=== PATIENT | female | born 1940 | race Caucasian/White ===

== ENCOUNTER → 2016-08-29 | Outpatient (CLI) | payer OTHER | LOC: CIMAGING 10:21 | PROVIDERS: ATTEND Internal Medicine | DX: Z12.31 Encounter for screening mammogram for malignant neoplasm of breast (principal) | CPT/HCPCS: G0202 ==

== ENCOUNTER → 2017-06-12 | Outpatient (CLI) | payer OTHER | LOC: BRMIMAGING 10:54 | PROVIDERS: ATTEND Internal Medicine | DX: Z13.820 Encounter for screening for osteoporosis (principal); M81.0 Age-related osteoporosis without current pathological fracture ==

== ENCOUNTER 2017-08-11 18:14 | Emergency (ER) | payer OTHER ==
[2017-08-11] MEDS ORDERED: CIPROFLOXACIN 500MG PREPACK#2 BTL TAKEHOME ONE ×2 (21:20→21:23)
[2017-08-11] MEDS ORDERED: HYDROCOD/APAP 5/325 PREPACK#6 BTL TAKEHOME ONE ×2 (21:20→21:23)
--- NOTE | 2017-08-11 21:20 | EDPHY ---
H & P Time Seen by Provider: 08/11/17 21:17 HPI/ROS: Chief complaint. Abdominal pain HPI. Patient is a 77-year-old female presents emergency department with abdominal pain that began about 4 o'clock this morning. She describes pain as being all over and crampy. There is no radiation to her back. She has not had nausea vomiting or diarrhea. May be somewhat worse with eating but basically not worse with eating or movement. She has had no fever. She has no chest discomfort or shortness of breath. Maybe the abdomen is slightly distended. No urinary symptoms. She had her INR checked today for remote DVT/PE and that was normal. She has had her appendix taken out. She went to urgent care and was found to have an elevated blood pressure so sent to the emergency department. ROS Constitutional. no fever/chills, no weakness Eyes. no problems with vision ENT. no sore throat, no nasal drainage Cardiovascular. no chest pain Respiratory. no shortness of breath, no cough Abdominal. Abdominal pain . no problems urinating MS. no calf pain/swelling, no neck/back pain, no joint pain Skin. no rash Lymph. no swollen glands Neuro. no headache, no dizziness, no difficulty walking or with speech Past Medical/Surgical History: Past medical history is significant for DVT, depression, peripheral vascular disease, appendectomy Social History: , nonsmoker, no alcohol Smoking Status: Never smoked Physical Exam: General Appearance: Alert pleasant well-developed female mild distress vital signs are stable Eyes: Pupils equal and round no pallor or injection. ENT, Mouth: Mucous membranes are moist. Respiratory: There are no retractions, lungs are clear to auscultation. Cardiovascular: Regular rate and rhythm. Gastrointestinal: Abdomen is soft and diffusely tender. No masses. Normal bowel sounds Neurological: Awake and alert, sensory and motor exams grossly normal. Skin: Warm and dry, no rashes. Musculoskeletal: Neck is supple nontender. Extremities symmetrical, full range of motion. Psychiatric: Patient is oriented X 3, there is no agitation. Constitutional: Initial Vital Signs Temperature (C) 36.7 C 08/11/17 18:30 Heart Rate 82 08/11/17 18:30 Respiratory Rate 16 08/11/17 18:30 Blood Pressure 182/103 H 08/11/17 18:30 O2 Sat (%) 97 06/12/18 18:30 O2 Delivery Mode Room Air Allergies/Adverse Reactions: Penicillins Allergy (Verified 10/24/11 16:33) Home Medications: Medication Instructions Recorded CALCIUM CARBONATE/VITAMIN D3 1 each PO BID 10/25/11 [CALCIUM + D 600 MG TABLET] Cyanocobalamin [Vitamin B12 1000 1,000 mcg PO DAILY 10/25/11 MCG (OTC)] Imipramine HCl [Imipramine HCl 50 150 mg PO HS 10/25/11 mg (RX)] [place] Carbonate ER [Eskalith Cr 450 mg PO HS 10/25/11 450 mg (RX)] Leiter-3 Fatty Acids [Fish Oil 1000 1,000 mg PO BID 10/25/11 mg (OTC)] Pharmacy Completed 10/25/11 10/25/11 Polyethylene Glycol 3350 [Miralax 17 gm PO DAILY 10/25/11 17 gm (OTC)] RAMELTEON [Rozerem] 8 mg PO HS 10/25/11 Vit C/Dl-E AC/Lut/Copper/Znox 1 each PO DAILY 10/25/11 [Preservision Softgel] Warfarin Sodium [Coumadin 5MG (RX)] 5 mg PO SUMOTUWEFRSA@1600 10/25/11 Warfarin Sodium [Coumadin 5MG (RX)] 7.5 mg PO TH@1600 10/25/11 oxyCODONE/APAP 5/325 [Percocet 1 tab PO Q6 PRN 10/25/11 5/325 (RX)] traZODone [traZODONE 100MG (RX)] 200 mg PO HS 10/25/11 levOFLOXACIN [Levaquin] 500 mg PO DAILY #7 tablet 08/11/17 metroNIDAZOLE [Metronidazole] 500 mg PO QID #28 tablet 08/11/17 Medical Decision Making - Diagnostics Imaging Results: CT abdomen and pelvis reviewed by me and discussed with Dr. Lanier shows extensive diverticular disease and possibly diverticulitis. No obvious abscess. Moderate constipation. No small-bowel obstruction Procedures: IV normal saline. Morphine for pain. ED Course/Re-evaluation: Re-evaluation at 9:10 p.m. Patient is stable. The patient, her , and I discussed imaging and lab results. We discussed treatment plan including criteria for return and importance of follow-up and further evaluation. She expresses understanding and agreement Differential Diagnosis: I have considered diverticulitis, constipation, bowel obstruction Departure - Departure Disposition: Home, Routine, Self-Care Clinical Impression: Diverticulitis Condition: Good Instructions: Diverticulitis (ED), Diverticulitis Diet (ED) Additional Instructions: Drink plenty of fluids and stay hydrated. Metronidazole can interfere and increased your INR level from Coumadin. You need to have your Coumadin level checked again on Thursday. Levaquin can interfere with you're trazodone. Please discontinue your trazodone while you are being treated for diverticulitis. Please discussed continuing use of trazodone with Dr. Abdul when you are seen for re-evaluation Hydrocodone 1 pill every 4-6 hours as needed for discomfort. Will cause constipation. Return for worsening pain, fever, vomiting. Referrals: Mounika Melendez MD [Medical Doctor] - 2-3 days without fail Prescriptions: levOFLOXACIN [Levaquin] 500 mg PO DAILY #7 tablet metroNIDAZOLE [Metronidazole] 500 mg PO QID #28 tablet
[2017-08-11] MEDS ORDERED: metroNIDAZOLE 500 MG TAB PO ONE (21:21)
[2017-08-11] MEDS ORDERED: metroNIDAZOLE 500 MG TAB ONE (21:23)
[2017-08-11 21:43] VITALS: BP 160/99
--- NOTE | 2017-08-12 10:37 | CPEKG ---
Heart Rate: 84 RR Interval: 714 P-R Interval: 164 QRSD Interval: 108 QT Interval: 400 QTC Interval: 473 P [place]: -16 QRS [place]: -31 T Wave [place]: 103 EKG Severity - ABNORMAL ECG - EKG Impression: SINUS RHYTHM EKG Impression: LEFT ATRIAL ABNORMALITY EKG Impression: BORDERLINE IVCD WITH LAD EKG Impression: BORDERLINE T ABNORMALITIES, LATERAL LEADS Electronically Signed By: Jeff Saucedo 12-Aug-2017 20:49:49
== END 2017-08-11 21:43 | disposition home or self-care (01) ==
DX: K57.92 Diverticulitis of intestine, part unspecified, without perforation or abscess without bleeding (principal); Z79.01 Long term (current) use of anticoagulants; Z90.49 Acquired absence of other specified parts of digestive tract
CPT/HCPCS: 74177; 93005; 99285; J2270; 84484-PO

== ENCOUNTER 2017-08-16 14:54 | Emergency (ER) | payer OTHER ==
[2017-08-16] MEDS ORDERED: oxyCODONE IR 5 MG TAB PO ONE (15:31)
[2017-08-16] MEDS ORDERED: LIDOCAINE 4%/MENTHOL 1% PATCH TD ONE (15:33)
[2017-08-16] MEDS ORDERED: fentaNYL 100 MCG/2 ML INJ IVP ONE ×2 (16:43→17:28)
[2017-08-16] MEDS ORDERED: ACETAMINOPHEN 325 MG TAB PO ONE (17:27)
[2017-08-16] MEDS ORDERED: OXYCODONE/APAP 5/325MG PREPACK#4 BTL TAKEHOME ONE (17:36)
--- NOTE | 2017-08-16 17:36 | EDPHY ---
H & P Stated Complaint: back pain, fall on Time Seen by Provider: 08/16/17 15:11 HPI/ROS: 77 yo F states she fell when getting out of bed on Thursday night, 4 days ago, she saw a physician on Thursday who started her on tramadol and ordered and outpatient xray of the thoracolumbar spine. The xray showed a T12 compression fracture. She is also currently being treated as an outpatient for diverticulits on both Metronidazole and Levaquin. She denies numbness or tingling in her extremities, no weakness in arms or legs , no loss of bowel or bladder control. She complains of mid back pain worse with movement. She states the diverticulitis is actually improving. Review of systems As per HPI General no fever no chills no weakness HEENT no eye pain no eye discharge. No eye redness, no sore throat Respiratory no cough, no shortness of breath Cardiac no chest pain, no peripheral edema GI no abdominal pain, no diarrhea, no constipation, no nausea, no vomiting no flank pain, no hematuria, no dysuria Musculoskeletal positive myalgias, no joint pain Heme no easy bruising, no easy bleeding Endo no polyuria, no polydipsia Skin no rashes, no pruritus Neuro no syncope, no dizziness, no headaches Psych is no suicidal ideation, no homicidal ideation Source: Patient, Family Exam Limitations: No limitations - Medical/Surgical History Hx Asthma: No Hx Chronic Respiratory Disease: No Hx Diabetes: No Hx Cardiac Disease: Yes Hx Renal Disease: No Hx Cirrhosis: No Hx Alcoholism: No Hx HIV/AIDS: No Hx Splenectomy or Spleen Trauma: No Other PMH: DVT, depression, osteoporosis, diverticulitis - Family History Significant Family History: No pertinent family hx - Social History Smoking Status: Never smoked Alcohol Use: None Drug Use: None - Physical Exam Exam: 77-year-old female alert and oriented in moderate distress secondary to back pain, nontoxic appearance, afebrile Vital signs stable Atraumatic normocephalic Extraocular muscles intact, anicteric TMs no hemotympanum No Larsen's Neck supple no JVD, no posterior midline cervical tenderness Lungs clear to auscultation bilaterally, symmetric, good air entry Heart regular rate and rhythm Abdomen nondistended bowel sounds present soft nontender Back no ecchymosis, no step-offs, positive tenderness to palpation T10 through L2 Extremities no cyanosis clubbing or edema Neuro Alert and oriented, no sensory deficit, no motor deficit, good deep tendon reflexes in lower extremities Constitutional: Initial Vital Signs Respiratory Rate 18 08/16/17 15:04 Blood Pressure 119/87 H 08/16/17 15:04 O2 Delivery Mode Room Air O2 (L/minute) 36.8 Allergies/Adverse Reactions: Penicillins Allergy (Verified 08/16/17 15:10) Home Medications: Medication Instructions Recorded CALCIUM CARBONATE/VITAMIN D3 1 each PO BID 10/25/11 [CALCIUM + D 600 MG TABLET] Vit C/Dl-E AC/Lut/Copper/Znox 1 each PO DAILY 10/25/11 [Preservision Softgel] Warfarin Sodium [Coumadin 5MG (RX)] 5 mg PO SUMOTUWEFRSA@1600 10/25/11 levOFLOXACIN [Levaquin] 500 mg PO DAILY #7 tablet 08/11/17 ALENDRONATE SODIUM 08/16/17 Desipramine HCl 08/16/17 Lidocaine [Lidoderm] 1 each TP DAILY #30 adh..patch 08/16/17 Preservision Softgel 08/16/17 oxyCODONE/APAP 5/325 [Percocet 1 tab PO Q8 PRN #21 tab 08/16/17 5/325 (*)] Medical Decision Making ED Course/Re-evaluation: Patient seen and evaluated for back pain after a fall. No neurologic deficits. 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 Grade 1 anterolisthesis of L4 on L5, stable in appearance. Patient given oxycodone IR 5 mg p.o. With mild initial relief in pain. Additionally an IV was placed and patient was given fentanyl 25 mcg IV push with marked relief this was repeated. Patient is on Coumadin so I chose not to use a nonsteroidal anti-inflammatory. [employer] was contacted for a [place] brace I also contacted the on-call doctor for Dr. Benton, from [facility], i spoke with Dr Burgos who reccomended the brace and close follow up. She stated they would likely do an MRI on outpatient basis to see if pt is candidate for kyphoplasty. Impression T12 compression fracture Plan Follow up with [facility] Oxycodone with acetaminophen, rx #21 Lidocaine patch [place] brace Differential Diagnosis: Differential diagnosis considered but not limited to: back contusion, vertebral fracture, spinous process fracture, back muscle spasm - Data Points Medications Given: Discontinued Medications Acetaminophen (Tylenol) 650 mg PO EDNOW ONE Stop: 08/16/17 17:28 Last Admin: 08/16/17 17:38 Dose: 650 mg Fentanyl (Sublimaze) 25 mcg IVP EDNOW ONE Stop: 08/16/17 16:44 Last Admin: 08/16/17 17:00 Dose: 25 mcg Fentanyl (Sublimaze) 25 mcg IVP EDNOW ONE Stop: 08/16/17 17:29 Last Admin: 08/16/17 17:36 Dose: 25 mcg Miscellaneous Medication (Icy Hot Lidocaine/Menthol 4%/1% Patch) 1 patch TD EDNOW ONE Stop: 08/16/17 15:34 Last Admin: 08/16/17 15:45 Dose: 1 patch Oxycodone HCl (Oxycodone Ir) 5 mg PO EDNOW ONE Stop: 08/16/17 15:32 Last Admin: 08/16/17 15:43 Dose: 5 mg Oxycodone/Acetaminophen (Percocet 5/325mg Prepack#4) 1 btl TAKEHOME EDNOW ONE Stop: 08/16/17 17:37 Last Admin: 08/16/17 18:10 Dose: 1 btl Departure - Departure Disposition: Home, Routine, Self-Care Clinical Impression: Fracture, thoracic vertebra, compression Condition: Good Instructions: Oxycodone/Acetaminophen (By mouth), Lidocaine Patch (On the skin) , Vertebral Compression Fracture (ED) Referrals: Mounika Melendez MD [Primary Care Provider] - As per Instructions Jeff Benton MD [Medical Doctor] - As per Instructions Prescriptions: Lidocaine [Lidoderm] 1 each TP DAILY #30 adh..patch oxyCODONE/APAP 5/325 [Percocet 5/325 (*)] 1 tab PO Q8 PRN #21 tab PRN Reason: Pain, Severe
[2017-08-16 19:28] VITALS: BP 118/90
[2017-08-16] MEDS ORDERED: PATCH REMOVAL 1 EA PATCH TD SCH (21:00)
== END 2017-08-16 18:10 | disposition home or self-care (01) ==
LOC: CED 14:54
DX: S22.080A Wedge compression fracture of T11-T12 vertebra, initial encounter for closed fracture (principal); W06.XXXA Fall from bed, initial encounter
CPT/HCPCS: 96374; 96376; 99284; J3010

== ENCOUNTER → 2017-08-16 | Outpatient (CLI) | payer OTHER | LOC: FIMAGING 08:28 | PROVIDERS: ATTEND Emergency Medicine | DX: M48.54XA Collapsed vertebra, not elsewhere classified, thoracic region, initial encounter for fracture (principal); M51.36 Other intervertebral disc degeneration, lumbar region; M43.16 Spondylolisthesis, lumbar region; M53.86 Other specified dorsopathies, lumbar region ==

== ENCOUNTER 2017-08-20 09:05 | Emergency (ER) | payer OTHER ==
--- NOTE | 2017-08-20 11:24 | EDPHY ---
H & P Time Seen by Provider: 08/20/17 09:11 HPI/ROS: CHIEF COMPLAINT: Constipation HISTORY OF PRESENT ILLNESS: Patient with long history of constipation stating that often will go 3 days without stool. She has had several recent emergency department evaluations including diagnosis of diverticulitis over a week ago and diagnosis of T12 compression fracture last Thursday and started on Percocet for pain. She states that she has had no stool since last Thursday, 9 days ago. She has been passing gas and small stool she describes as"beans". She has been using milk a magnesia and prune juice intermittently without results. She describes some abdominal fullness but no significant abdominal pain. She has had no nausea or vomiting. She has had no fevers or chills. She does have back pain in the area of her fracture that has been severe. She is using a [place] brace. REVIEW OF SYSTEMS: Constitutional: No fever, no chills. Eyes: No discharge. ENT: No sore throat. Cardiovascular: No chest pain, no palpitations. Respiratory: No cough, no shortness of breath. Gastrointestinal: No abdominal pain, no vomiting. Genitourinary: No dysuria. Musculoskeletal: Back pain Skin: No rashes. Neurological: No headache. General Appearance: Alert, no distress. Chronically ill-appearing. Eyes: Pupils equal and round no pallor or injection. ENT, Mouth: Mucous membranes moist. Respiratory: There are no retractions, lungs are clear to auscultation. Cardiovascular: Regular rate and rhythm. Gastrointestinal: Abdomen is soft and nontender, no masses, bowel sounds normal. Some mild distension. Neurological: Awake and alert, no focal neurologic deficits Skin: Warm and dry, no rashes. Musculoskeletal: Neck is supple nontender. Extremities are symmetrical, full range of motion, no edema. Psychiatric: Patient is oriented X 3, there is no agitation. Medical/surgical history: Osteoporosis, depression, diverticulitis, DVT on warfarin, T12 fracture. Social history: Lives with . Uses tobacco and alcohol daily. Smoking Status: Never smoked Constitutional: Initial Vital Signs Temperature (C) 36.7 C 08/20/17 09:10 Heart Rate 75 08/20/17 09:10 Respiratory Rate 18 08/20/17 09:10 Blood Pressure 132/65 H 08/20/17 09:10 O2 Sat (%) 97 08/20/17 09:10 O2 Delivery Mode Room Air Allergies/Adverse Reactions: Penicillins Allergy (Verified 08/20/17 09:10) Home Medications: Medication Instructions Recorded CALCIUM CARBONATE/VITAMIN D3 1 each PO BID 10/25/11 [CALCIUM + D 600 MG TABLET] Vit C/Dl-E AC/Lut/Copper/Znox 1 each PO DAILY 10/25/11 [Preservision Softgel] Warfarin Sodium [Coumadin 5MG (RX)] 5 mg PO SUMOTUWEFRSA@1600 10/25/11 levOFLOXACIN [Levaquin] 500 mg PO DAILY #7 tablet 08/11/17 ALENDRONATE SODIUM 08/16/17 Desipramine HCl 08/16/17 Lidocaine [Lidoderm] 1 each TP DAILY #30 adh..patch 08/16/17 Preservision Softgel 08/16/17 oxyCODONE/APAP 5/325 [Percocet 1 tab PO Q8 PRN #21 tab 08/16/17 5/325 (*)] Medical Decision Making - Diagnostics Imaging Results: Imaging Impressions Abdomen X-Ray 08/20/17 10:07 Impression: Abundant intracolonic stool. No direct evidence of bowel obstruction. Imaging: I viewed and interpreted images myself ED Course/Re-evaluation: Minimal stool output despite Fleet's mineral oil enema and soapsuds enema. Differential Diagnosis: Differential diagnosis includes but is not limited to constipation, obstipation , bowel obstruction, diverticulitis. After evaluation no evidence of obstruction or true obstipation however constipation is severe and refractory to enemas. Plan is to recommend using magnesium citrate [id number] at home. Also will increase Colace so that she is taking it every time she takes Percocet. Discussed importance of trying to wean off narcotic medications as soon as possible. Will also recommend MiraLax, which patient has used multiple times in the past, at least twice daily. Strongly recommended she follow up with her primary care physician. She does have follow-up with orthopedics for her T12 fracture but has not yet seen them. Reviewed return precautions in detail. Stable for discharge. Departure - Departure Clinical Impression: Constipation Qualifiers: Constipation type: slow transit constipation Qualified Code(s): K59.01 - Slow transit constipation Condition: Fair Instructions: Constipation (DC) Additional Instructions: Increase water intake as well as fresh fruits and vegetables. Try to reduce use of Percocet as much as possible but take 1 Colace tablet every time you take Percocet. Today get a bottle of Mag citrate and take the entire bottle. Tomorrow start using MiraLax at least twice a day as discussed. And continue to take Colace every time you take a Percocet. For back pain occasional ibuprofen, less than once a day, is safe. I also recommend using ice to your back for pain, no heat. Follow up with your primary care physician without fail in the next few days. Return to the emergency department if you experience increasing abdominal pain, nausea, vomiting, fevers or other concerning symptoms. Referrals: Mounika Melendez MD [Primary Care Provider] - As per Instructions
[2017-08-20 13:05] VITALS: BP 127/87
== END 2017-08-20 11:40 | disposition home or self-care (01) ==
LOC: CED 09:05
DX: K59.01 Slow transit constipation (principal); Z79.01 Long term (current) use of anticoagulants
CPT/HCPCS: 74019-PO

== ENCOUNTER 2017-08-28 13:16 | Day surgery (SDC) | payer OTHER ==
[2017-08-28] MEDS ORDERED: CHLORHEXIDINE GLUC HIBICLENS 118 ML BTL TP ONE (13:34)
[2017-08-28] MEDS ORDERED: BUPIVACAINE 0.25% 30 ML SDV ONE (13:35)
[2017-08-28] MEDS ORDERED: EPINEPHrine 1 MG/ML INJ ONE (13:35)
[2017-08-28] MEDS ORDERED: BACITRACIN 50,000 UNITS/10 ML SYR IRR ONE (13:35)
[2017-08-28] MEDS ORDERED: LR 1,000 ML IV ONE (13:42)
[2017-08-28] MEDS ORDERED: IOPAMIDOL (ISOVUE-M 300) 15 ML VIAL ONE ×2 (13:46→14:33)
[2017-08-28 14:21] VITALS: BP 100/57
[2017-08-28] MEDS ORDERED: CLINDAMYCIN 900 MG/DEXTROSE 50 ML IV ONE (14:49)
[2017-08-28 15:10] LABS: INR 4.49 (0.83-1.16); PROTIME(PATIENT) 42.2 SEC (12.0-15.0)
== END 2017-08-28 15:42 | disposition home or self-care (01) ==
LOC: FSGY 13:16
PROVIDERS: ATTEND Neurological Surgery
DX: Z53.09 Procedure and treatment not carried out because of other contraindication (principal); S22.080A Wedge compression fracture of T11-T12 vertebra, initial encounter for closed fracture; Z79.01 Long term (current) use of anticoagulants
CPT/HCPCS: J0171; Q9967

== ENCOUNTER 2017-08-30 20:02 | Inpatient (IN) | payer OTHER ==
[2017-08-30] MEDS ORDERED: NS 1,000 ML IV ONE (20:30)
[2017-08-30] MEDS ORDERED: DIAZEPAM 5 MG/ML 1 ML SYR IVP ONE (20:43)
[2017-08-30 20:57] LABS: PLATELET COUNT 260 10^3/uL (150-400)
[2017-08-30 21:06] LABS: INR 2.46 (0.83-1.16); PROTIME(PATIENT) 26.6 SEC (12.0-15.0)
[2017-08-30] MEDS ORDERED: ONDANSETRON DISINTEGRATING 4 MG TAB PO PRN (21:46)
[2017-08-30] MEDS ORDERED: ONDANSETRON 4 MG/2 ML VIAL IVP PRN (21:46)
[2017-08-30] MEDS ORDERED: HYDROmorphONE/DILAUDID 1 MG/ML INJ IVP PRN (21:46)
[2017-08-30] MEDS ORDERED: PROMETHAZINE HCL 25 MG/ML INJ IVP PRN (21:46)
[2017-08-30] MEDS ORDERED: PHYTONADIONE 10 MG in NS 50 ML IV ONE (21:50)
[2017-08-30] MEDS ORDERED: BISACODYL 10 MG SUPP PR PRN (21:53)
[2017-08-30] MEDS ORDERED: LACTULOSE 20 GM/30 ML UDCUP PO PRN (21:53)
--- NOTE | 2017-08-30 22:29 | GHP ---
[f rep st] HISTORY AND PHYSICAL DATE OF ADMISSION: 08/30/2017 CHIEF COMPLAINT: Back pain. HISTORY: This is a 77-year-old female who has a past medical history of bipolar disorder and remote history of DVT of the leg on chronic anticoagulation as well as osteoporosis with recent compression fracture, presenting with worsening back pain. The patient is actually scheduled for kyphoplasty chloe for a fairly recently discovered T12 compression fracture. However, pain became so severe at h ome that she was not able to stay there and came to the ER for further evaluation. In discussion wit h the family, it sounds as if patient has been having increasing difficulty with falls of late and ev en prior to this injury has been struggling somewhat with her mobility. At the time of my evaluation , patient herself is rather somnolent after receiving some Valium in the emergency department. She n otes that at the present time she is comfortable. She denies other complaints at this time. Her fam ish is concerned that she has not eaten all day essentially other than a couple chocolate chip cookie s that she took with her pain medications. Patient denies hunger currently. PAST MEDICAL HISTORY: 1. Bipolar disorder. 2. Remote history of DVT, unclear if this was triggered or not. 3. Osteoporosis. 4. Recent compression fracture. 5. Chronic falls. PAST SURGICAL HISTORY: Appendectomy. SOCIAL HISTORY: Patient is and lives with her . She drinks alcohol occasionally. Sh stephy is . She is a prior smoker but is no longer smoking. FAMILY HISTORY: Parents are . REVIEW OF SYSTEMS: 10-point review of systems obtained and negative except as per HPI. HOME MEDICATIONS: 1. Warfarin. 2. PreserVision. 3. Timolol. 4. Lidocaine patch. 5. Desipramine. 6. [place]. 7. Alendronate. ALLERGIES: Penicillin. PHYSICAL EXAMINATION: VITAL SIGNS: BP 114/74, heart rate 83, respiratory rate 20, O2 sats 96% on 3 L, temperature is 37. GENERAL APPEARANCE: This is an elderly female. She is awake but somnolent. She is not moving and lying flat on her back. EYES: Pinpoint pupils. HENT: Oropharynx clear. CAR DIOVASCULAR: Regular rate and rhythm. No MRG. PULMONARY: CTA bilaterally to anterior exam. ABDOM EN: Soft, nontender, nondistended. EXTREMITIES: No clubbing, cyanosis, or edema. SKIN: Warm, dry , well perfused. NEURO/PSYCH: Oriented and appropriate. CLINICAL DATA: Labs reviewed and notable for a white blood cell count of 11.1. INR is 2.4. Can Bander Operator ry notable for creatinine of 1.4, potassium of 134. Abdominal x-ray from 08/20/2017, personally reviewed. Notable for intracolonic stool, otherwise noth ing acute. ASSESSMENT AND PLAN: This is a 77-year-old female with a fairly recent T12 compression fracture, tiara iting kyphoplasty, presenting with acutely worsening back pain. 1. Compression fracture. Again, patient has become increasingly symptomatic from this. She has anjelica eduled kyphoplasty for tomorrow but was unable to tolerate the pain at home and is now admitted for p ain control. She has responded well to very low-dose diazepam which will be continued. She is antic oagulated and will be given vitamin K in anticipation of kyphoplasty to be performed in the morning. She will continue her alendronate as per her outpatient routine. 2. Frequent falls. Patient sounds as if she has been increasingly more debilitated at home. This i s likely multifactorial, though I was unable to get much of a history from the patient at this point as she is so somnolent. Physical Therapy, Occupational Therapy, and Case Management will be involved . Family is requesting assistance with getting home health set up, which sounds reasonable, though d epending on her physical and occupational therapy evaluations, she may be more appropriate for [facility] facility. 3. Acute kidney injury. Patient with slight increase in her creatinine to 1.4 from a baseline close r to 1.2, although she does have a fair amount of fluctuation in looking back at her labs. We will o btain a lithium level just to be sure she is not having some lithium toxicity, though in discussion w ith her it sounds like she is quite compliant with her medications. This is most likely prer enal given that she has not been eating or drinking for at least the last 24 hours. We will provide intravenous fluids overnight and recheck in the morning. 4. Remote deep venous thrombosis. It is somewhat unclear if patient truly has an indication for natanael oing anticoagulation. Her INR is 2.4 currently. We will provide vitamin K in anticipation of proced ure in the morning. 5. Bipolar disorder. She is well controlled on her current medications, which will be continued. 6. Inpatient status. Suspect patient will need greater than 48-hour stay for evaluation and managem ent of above, given her generalized deconditioning and frequent falls and lack of safety in being at home. Patient is new to my care. Old records reviewed and summarized as per HPI and past medical history. Care plan reviewed with ER physician, including plans for kyphoplasty in the morning. Further histo ry obtained from patient's family present at bedside. /[id number]/MODL
[2017-08-30] MEDS: NS 1,000 ML IV SCH (22:40)
--- NOTE | 2017-08-30 22:42 | EDPHY ---
H & P Time Seen by Provider: 08/30/17 20:27 HPI/ROS: CHIEF COMPLAINT: Back pain HISTORY OF PRESENT ILLNESS: 77-year-old female presents to the emergency department with ongoing back pain. 2 weeks ago the patient had a mechanical fall and sustained a compression fracture T12. She was placed in a brace and was prescribed oxycodone. She has been taking 10 mg oxycodone as prescribed and wearing her brace as prescribed. She apparently was scheduled for surgery, kyphoplasty, however the patient's INR of the time was too high. She is now scheduled for kyphoplasty tomorrow, 08/31/2017, but presents to the emergency department because she cannot stand the pain anymore. The family is concerned because she is in such significant pain that she does not get up to go to the bathroom and do her daily activities. She denies pain in her chest or difficulty breathing. No other falls other than the original fall 2 weeks ago. She denies paresthesias in her upper lower extremities. Denies pain in her chest or difficulty breathing. Denies headache. She has pain especially when she tries to move around. She took 10 mg oxycodone just a few hours prior to arrival. REVIEW OF SYSTEMS: Constitutional: No fever, no chills. Eyes: No double or blurry vision. ENT: No sore throat. Respiratory: No cough, no shortness of breath. Cardiac: No chest pain. Gastrointestinal: No abdominal pain, vomiting or diarrhea. Genitourinary: No dysuria. Musculoskeletal: Back pain as above. No neck pain Skin: No rashes. Neurological: No headache. Past Medical/Surgical History: DVTs, depression, osteoporosis, diverticulitis, T12 compression fracture Social History: and lives independently with her in [place] Smoking Status: Current every day smoker Physical Exam: General Appearance: Alert, mild to moderate distress. Eyes: Pupils equal and round. Extraocular motions are all intact. ENT: Mouth: Mucous membranes moist. Respiratory: No wheezing, rhonchi, or rales, lungs are clear to auscultation. Cardiovascular: Regular rate and rhythm. Gastrointestinal: Abdomen is soft and nontender, no masses, no rebound or guarding, bowel sounds normal. Neurological: Alert and oriented x 3, cranial nerves II through XII grossly intact Skin: Warm and dry, no rashes. Musculoskeletal: Nontender to palpate along her cervical spine. Neck is supple. Unable to sit the patient upright secondary to her severe pain. Extremities: Full range of motion and no peripheral edema. Psychiatric: Patient is oriented X 3, there is no agitation. Constitutional: Initial Vital Signs Temperature (C) 36.8 C 08/30/17 20:06 Heart Rate 93 08/30/17 20:06 Respiratory Rate 18 08/30/17 20:06 Blood Pressure 110/72 08/30/17 20:06 O2 Sat (%) 93 08/30/17 20:06 O2 Delivery Mode Nasal Cannula O2 (L/minute) 3 Allergies/Adverse Reactions: Penicillins Allergy (Verified 08/20/17 09:10) Home Medications: Medication Instructions Recorded CALCIUM CARBONATE/VITAMIN D3 1 tab PO DAILY 10/25/11 [CALCIUM + D 600 MG TABLET] Warfarin Sodium [Coumadin 5MG (RX)] 5 mg PO SUMOTUTHFRSA@1600 10/25/11 Alendronate Sodium [Fosamax 70 MG 70 mg PO SA@0700 08/16/17 (*)] Desipramine HCl [Norpramin 50 mg 50 mg PO HS 08/16/17 (*)] Vit C/Dl-E AC/Lut/Copper/Znox 1 cap PO BID 08/16/17 [Preservision Softgel] Timolol 0.5% [TIMOPTIC 0.5% (*)] 1 drops EACHEYE DAILY 08/28/17 Cholecalciferol Vit D3 [Vitamin D3 2,000 units PO DAILY 08/30/17 (*)] [place] Carbonate ER [Eskalith Cr 450 mg PO DAILY 08/30/17 450 mg (*)] Warfarin Sodium [Coumadin 5MG (*)] 7.5 mg PO WE@1600 08/30/17 Medical Decision Making ED Course/Re-evaluation: 77-year-old female presents to the emergency department with back pain. She has been wearing her Field Mechanic/Site Lead Halie brace as directed. She has been taking oxycodone 10 mg and is still having ongoing consistent pain. She is scheduled for kyphoplasty tomorrow. Family is concerned that she is unable to take care of herself at home. On examination patient is clearly in distress. She is having difficulty moving around because of the pain. There is no neurologic symptoms. Patient has an elevated creatinine 1.4 with elevated BUN of 34 and likely dehydrated. Case was discussed with Dr. Rnoak Yuen, secondary supervising physician, who did not directly evaluate the patient but agrees with treatment and plan. Patient will be admitted to the hospitalist, Dr. Bebo Rod. Patient was given 1.25 mg of IV Valium. This did help some with her pain but still having pain with moving around. Differential Diagnosis: Back pain including but not limited to muscular pain, herniated disc, spine fracture, intra-abdominal causes and urinary tract infection. - Data Points Laboratory Results: Laboratory Results 08/30/17 20:40 08/30/17 20:40 08/30/17 08/30/17 08/30/17 20:40 20:40 20:40 WBC RBC Hgb Hct MCV MCH MCHC RDW Plt Count MPV Neut % (Auto) Lymph % (Auto) [place] % (Auto) Eos % (Auto) Baso % (Auto) Nucleat RBC Rel Count Absolute Neuts (auto) Absolute Lymphs (auto) Absolute Monos (auto) Absolute Eos (auto) Absolute Basos (auto) Absolute Nucleated RBC Immature Gran % Immature Gran # PT 26.6 SEC H SEC (12.0-15.0) INR 2.46 H (0.83-1.16) Sodium 134 mEq/L L mEq/L (135-145) Potassium 4.5 mEq/L mEq/L (3.3-5.0) Chloride 107 mEq/L mEq/L (97-110) Carbon Dioxide 22 mEq/l mEq/l (22-31) Anion Gap 5 mEq/L L mEq/L (8-16) BUN 34 mg/dL H mg/dL (7-23) Creatinine 1.4 mg/dL H mg/dL (0.6-1.0) Estimated GFR 36 Glucose 100 mg/dL mg/dL (70-100) Calcium 10.7 mg/dL H mg/dL (8.5-10.4) Phosphorus 4.4 mg/dL mg/dL (2.5-4.5) [place] 1.2 mEq/L mEq/L (0.6-1.2) 08/30/17 20:40 WBC 11.01 10^3/uL H 10^3/uL (3.80-9.50) RBC 4.26 10^6/uL 10^6/uL (4.18-5.33) Hgb 13.5 g/dL g/dL (12.6-16.3) Hct 41.9 % % (38.0-47.0) MCV 98.4 fL fL (81.5-99.8) MCH 31.7 pg pg (27.9-34.1) MCHC 32.2 g/dL L g/dL (32.4-36.7) RDW 13.8 % % (11.5-15.2) Plt Count 260 10^3/uL 10^3/uL (150-400) MPV 11.3 fL fL (8.7-11.7) Neut % (Auto) 77.2 % H % (39.3-74.2) Lymph % (Auto) 15.5 % % (15.0-45.0) [place] % (Auto) 6.2 % % (4.5-13.0) Eos % (Auto) 0.4 % L % (0.6-7.6) Baso % (Auto) 0.4 % % (0.3-1.7) Nucleat RBC Rel Count 0.0 % % (0.0-0.2) Absolute Neuts (auto) 8.51 10^3/uL H 10^3/uL (1.70-6.50) Absolute Lymphs (auto) 1.71 10^3/uL 10^3/uL (1.00-3.00) Absolute Monos (auto) 0.68 10^3/uL 10^3/uL (0.30-0.80) Absolute Eos (auto) 0.04 10^3/uL 10^3/uL (0.03-0.40) Absolute Basos (auto) 0.04 10^3/uL 10^3/uL (0.02-0.10) Absolute Nucleated RBC 0.00 10^3/uL 10^3/uL (0-0.01) Immature Gran % 0.3 % % (0.0-1.1) Immature Gran # 0.03 10^3/uL 10^3/uL (0.00-0.10) PT INR Sodium Potassium Chloride Carbon Dioxide Anion Gap BUN Creatinine Estimated GFR Glucose Calcium Phosphorus [place] Medications Given: Sodium Chloride (Ns) 1,000 mls @ 100 mls/hr IV CONT ARASH Stop: 02/26/18 21:59 Last Admin: 08/30/17 22:40 Dose: 1,000 mls Discontinued Medications Diazepam (Valium) 1.25 mg IVP EDNOW ONE Stop: 08/30/17 20:44 Last Admin: 08/30/17 20:48 Dose: 1.25 mg Sodium Chloride (Ns) 1,000 mls @ 0 mls/hr IV ONCE ONE PRN Reason: Wide Open Stop: 08/30/17 20:31 Last Admin: 08/30/17 20:39 Dose: 1,000 mls Phytonadione 10 mg/ Sodium (Chloride) 51 mls @ 204 mls/hr IV ONCE ONE Stop: 08/30/17 22:04 Last Admin: 08/30/17 22:40 Dose: 51 mls Departure - Departure Disposition: [facility] Inpatient Acute Clinical Impression: T12 compression fracture Back pain Qualifiers: Back pain location: low back pain Chronicity: acute Back pain laterality: unspecified Sciatica presence: without sciatica Qualified Code(s): M54.5 - Low back pain Condition: Good
[2017-08-30] MEDS: oxyCODONE IR 5 MG TAB PO PRN (23:31)
[2017-08-31] MEDS: DIAZEPAM 5 MG TAB PO PRN ×2 (01:19→09:41)
[2017-08-31] MEDS: oxyCODONE IR 5 MG TAB PO PRN ×4 (03:08→20:37)
[2017-08-31 05:14] LABS: INR 1.5 (0.83-1.16); PROTIME(PATIENT) 18.3 SEC (12.0-15.0)
[2017-08-31] MEDS ORDERED: LITHIUM CARBONATE ER 450 MG TAB PO SCH (09:00)
[2017-08-31] MEDS: CALCIUM CARB W/VIT D 500 MG TAB PO SCH (09:22)
[2017-08-31] MEDS: PRESERVISION AREDS2 FORMULA EYE VIT 1 EACH PO SCH ×2 (09:22→18:46)
[2017-08-31] MEDS: CHOLECALCIFEROL VIT D3 1,000 UNITS TAB PO SCH (09:22)
[2017-08-31] MEDS: POLYETHYLENE GLYCOL 3350 17 GM PKT PO PRN ×2 (09:38→20:35)
[2017-08-31] MEDS: TIMOLOL 0.5% 15 ML OPHT.BTL EACHEYE SCH (09:38)
[2017-08-31] MEDS: SENNOSIDES/DOCUSATE SODIUM TAB PO SCH ×2 (09:40→20:36)
[2017-08-31] MEDS: ACETAMINOPHEN 325 MG TAB PO PRN (09:40)
--- NOTE | 2017-08-31 10:12 | ASMTCMCOM ---
CM Note CM Note Notes: Pt in for back pain, had scheduled kyphoplasty today but could not tolerate pain so came to ED. Pt to have kypho today, therapy evals pending. Pt lives independently with husb, is having frequent falls. Pt likely needs HHC vs. SNF, CM to follow. D/c plan of care: TBD Date Signed: 08/31/2017 10:12 AM Electronically Signed By:MARGIE Eugene
--- NOTE | 2017-08-31 10:36 | PDMN ---
Medical Necessity Medical necessity: Pt meets inpt criteria per MD order on 08/30/17 and MCG M-63, A -1 day,Back pain. Pt admitted for worsening back pain, high fall risk with recent falls, pending surgery today as well as PT/OT evals.
[2017-08-31] MEDS: LITHIUM CARBONATE ER 450 MG TAB PO SCH (12:24)
[2017-08-31] MEDS ORDERED: CLINDAMYCIN 900 MG/DEXTROSE 50 ML IV ONE (13:30)
[2017-08-31] MEDS ORDERED: CHLORHEXIDINE GLUC HIBICLENS 118 ML BTL TP ONE ×2 (14:04→15:35)
[2017-08-31] MEDS ORDERED: BUPIVACAINE 0.25% 30 ML SDV ONE ×2 (14:04→15:35)
[2017-08-31] MEDS ORDERED: EPINEPHrine 1 MG/ML INJ ONE ×2 (14:05→15:35)
[2017-08-31] MEDS ORDERED: BACITRACIN 50,000 UNITS/10 ML SYR IRR ONE (14:05)
[2017-08-31] MEDS ORDERED: IOPAMIDOL (ISOVUE-M 300) 15 ML VIAL ONE ×3 (14:06→15:39)
--- NOTE | 2017-08-31 14:18 | HOSPPROG ---
Hospitalist Progress Note Assessment/Plan: 77y female with fall and c/o back pain. First encounter, chart reviewed. D/W Dr Rod. #compression fx -kypho today #Pain -cont meds #AZAEL -better -dehydration -poor po intake #Hx dvt -restart after procedure #Bipolar -home meds #Dispo -unclear -PT/OT -plan Subjective: no verbal interaction. Family at bedside. Objective: Vital Signs Temp Pulse Resp BP Pulse Ox 37.1 C 36 L 13 110/64 96 08/31/17 11:30 08/31/17 11:30 08/31/17 11:30 08/31/17 11:30 08/31/17 11:30 Laboratory Results 08/31/17 04:20 08/30/17 08/31/17 09/01/17 05:59 05:59 05:59 Intake Total 1383 Balance 1383 PT 18.3 SEC (12.0-15.0) H 08/31/17 04:20 INR 1.50 (0.83-1.16) H 08/31/17 04:20 - Physical Exam Constitutional: appears nourished, chronically ill appearing, uncomfortable Eyes: PERRL, anicteric sclera, EOMI Ears, Nose, Mouth, Throat: moist mucous membranes, hearing normal, ears appear normal Cardiovascular: No JVD, No tachycardia, No edema Respiratory: no respiratory distress, no rales or rhonchi, reduced air movement Gastrointestinal: normoactive bowel sounds, No tenderness, No ascites Skin: warm, normal color, abrasion Musculoskeletal: joint tenderness, pain with ROM, muscular tenderness, abnormal gait, generalized weakness Psychiatric: not anxious, poor insight, poor judgement, poor memory ICD10 Worksheet Patient Problems: Problems Problem Status Onset Back pain Acute T12 compression fracture Acute
[2017-08-31] MEDS ORDERED: LR 1,000 ML IV SCH (14:30)
[2017-08-31] MEDS ORDERED: fentaNYL 100 MCG/2 ML INJ ONE ×2 (16:29→18:22)
[2017-08-31] MEDS: fentaNYL 100 MCG/2 ML INJ IVP SCH ×3 (16:46→18:47)
--- NOTE | 2017-08-31 16:52 | PDANEPAE ---
ANE History of Present Illness T 12 kyphoplasty ANE Past Medical History - Cardiovascular History Hx Hypertension: No Hx Arrhythmias: No Hx Chest Pain: No Hx Coronary Artery / Peripheral Vascular Disease: Yes Hx CHF / Valvular Disease: No Hx Palpitations: No Cardiovascular History Comment: blood clots bilat legs - Pulmonary History Hx COPD: No Hx Asthma/Reactive Airway Disease: No Hx Recent Upper Respiratory Infection: No Hx Oxygen in Use at Home: No Hx Sleep Apnea: No Sleep Apnea Screening Result - Last Documented: Negative Pulmonary History Comment: 1 1/2 pack a day - Neurologic History Hx Cerebrovascular Accident: No Hx Seizures: No Hx Dementia: No - Endocrine History Hx Diabetes: No - Renal History Hx Renal Disorders: No - Liver History Hx Hepatic Disorders: No - Neurological & Psychiatric Hx Hx Neurological and Psychiatric Disorders: Yes Neurological / Psychiatric History Comment: depression - Cancer History Hx Cancer: No - Congenital Disorder History Hx Congenital Disorders: No - GI History Hx Gastrointestinal Disorders: Yes Gastrointestinal History Comment: constipation - Other Health History Other Health History: macular degeneration - Chronic Pain History Chronic Pain: Yes - Surgical History Prior Surgeries: appy, eye surgery, ANE Review of Systems Review of systems is: negative Review of Systems: - Exercise capacity Exercise capacity: limited by disability ANE Patient History - Allergies Allergies/Adverse Reactions: Penicillins Allergy (Verified 08/31/17 13:12) Hives - Home Medications Home medications: home medication list seen and reviewed Home Medications: CALCIUM CARBONATE/VITAMIN D3 [CALCIUM + D 600 MG TABLET] 1 tab PO DAILY [Last Taken 08/30/17 08:00] Warfarin Sodium [Coumadin 5MG (RX)] 5 mg PO SUMOTUTHFRSA@1600 10/25/11 [Last Taken 08/27/17] Alendronate Sodium [Fosamax 70 MG (*)] 70 mg PO SA@0700 08/16/17 [Last Taken 03/19] Desipramine HCl [Norpramin 50 mg (*)] 50 mg PO HS 08/16/17 [Last Taken 08/29/17 21:00] Vit C/Dl-E AC/Lut/Copper/Znox [Preservision Softgel] 1 cap PO BID 08/16/17 [ Last Taken 08/30/17 08:00] Timolol 0.5% [TIMOPTIC 0.5% (*)] 1 drops EACHEYE DAILY 08/28/17 [Last Taken 03/19 08:00] Cholecalciferol Vit D3 [Vitamin D3 (*)] 2,000 units PO DAILY 08/30/17 [Last Taken 08/30/17 08:00] [place] Carbonate ER [Eskalith Cr 450 mg (*)] 450 mg PO DAILY 08/30/17 [Last Taken 08/30/17 08:00] Warfarin Sodium [Coumadin 5MG (*)] 7.5 mg PO WE@1600 08/30/17 [Last Taken ] - NPO status NPO Status: no food or drink >8 hours NPO Since - Liquids (Date): 08/31/17 NPO Since - Liquids (Time): 09:00 NPO Since - Solids (Date): 08/31/17 NPO Since - Solids (Time): 00:00 - Smoking Hx Smoking Status: Current every day smoker - Family Anes Hx Family Hx Anesthesia Complications: none ANE Labs/Vital Signs - Labs Result Diagrams: 08/30/17 20:40 08/31/17 04:20 - Vital Signs Vital Signs: reviewed preoperatively; see RN documention for details Blood Pressure: 116/60 Heart Rate: 76 Respiratory Rate: 18 O2 Sat (%): 95 Height: 160.02 cm Weight: 53.07 kg ANE Physical Exam - Airway Neck exam: FROM Mallampati Score: Class 2 Mouth exam: poor dentition - Pulmonary Pulmonary: no respiratory distress - Cardiovascular Cardiovascular: regular rate and rhythym - ASA Status ASA Status: III ANE Anesthesia Plan Total IV Anesthesia: Yes
[2017-08-31] MEDS ORDERED: PROPOFOL 200 MG/20 ML VIAL ONE (17:08)
[2017-08-31] MEDS ORDERED: LIDOCAINE 2% 100 MG/5 ML SYR ONE (17:09)
--- NOTE | 2017-08-31 18:18 | POSTOPPROG ---
Post Op Note Date of Operation: 08/31/17 Surgeon: Danny Paz Rotary Cutter Feeder: none Anesthesia: IV Sedation Pre-op Diagnosis: T12 compression fracture Post-op Diagnosis: same Indication: T12 compression fracture Procedure: T12 kyphoplasty Findings: successful kyphoplasty Inf/Abcess present in the surg proc area at time of surgery?: No EBL: Minimal
[2017-08-31] MEDS ORDERED: MEPERIDINE 25 MG/0.5 ML AMP IVP PRN (18:21)
[2017-08-31] MEDS ORDERED: DEXAMETHASONE 4 MG/ML VIAL IVP PRN (18:21)
[2017-08-31] MEDS ORDERED: LABETALOL HCL 5 MG/ML 20 ML MDV IVP PRN (18:21)
[2017-08-31] MEDS ORDERED: HYDROCODONE/APAP 5/325 TAB PO PRN (18:21)
[2017-08-31] MEDS ORDERED: NALOXONE HCL 0.4 MG/ML INJ IVP PRN (18:21)
[2017-08-31] MEDS ORDERED: DIAZEPAM 5 MG/ML 1 ML SYR ONE (18:23)
[2017-08-31] MEDS: fentaNYL 100 MCG/2 ML INJ IVP PRN ×4 (18:26→19:34)
[2017-08-31] MEDS: DIAZEPAM 5 MG/ML 1 ML SYR IVP PRN ×3 (18:34→19:24)
[2017-08-31] MEDS: DESIPRAMINE HCL 50 MG TAB PO SCH (20:36)
[2017-08-31] MEDS ORDERED: DESIPRAMINE HCL 50 MG TAB PO SCH (21:00)
[2017-09-01] MEDS: NS 1,000 ML IV SCH (00:26)
[2017-09-01] MEDS: DIAZEPAM 5 MG TAB PO PRN (00:26)
[2017-09-01] MEDS: oxyCODONE IR 5 MG TAB PO PRN ×3 (05:16→21:43)
[2017-09-01] MEDS: TIMOLOL 0.5% 15 ML OPHT.BTL EACHEYE SCH (09:00)
[2017-09-01] MEDS: LITHIUM CARBONATE ER 450 MG TAB PO SCH (09:01)
[2017-09-01] MEDS: POLYETHYLENE GLYCOL 3350 17 GM PKT PO PRN (09:01)
[2017-09-01] MEDS: SENNOSIDES/DOCUSATE SODIUM TAB PO SCH ×2 (09:01→21:41)
[2017-09-01] MEDS: CHOLECALCIFEROL VIT D3 1,000 UNITS TAB PO SCH (09:02)
[2017-09-01] MEDS: ACETAMINOPHEN 325 MG TAB PO PRN ×2 (09:02→16:10)
[2017-09-01] MEDS: PRESERVISION AREDS2 FORMULA EYE VIT 1 EACH PO SCH ×2 (09:02→16:11)
[2017-09-01] MEDS: CALCIUM CARB W/VIT D 500 MG TAB PO SCH (09:02)
--- NOTE | 2017-09-01 09:41 | SOAPPROG ---
SOAP Progress Note Assessment/Plan: Assessment: 77 yo F POD #1 T12 kyphoplasty for T12 compression fracture Plan: neuro: stable and doing well overall :) PT/OT ok to discharge home if cleared by Hospitalists follow up with Dr Paz in 2 weeks discharge with kyphoplasty post op instructions from [email or web address] please call with neuro changes discussed with Dr Paz 09/01/17 09:37 Subjective: back pain seems better, no rib pain. Objective: Vital Signs Temp Pulse Resp BP Pulse Ox 36.8 C 71 13 101/62 93 09/01/17 07:59 09/01/17 07:59 09/01/17 07:59 09/01/17 07:59 09/01/17 07:59 Laboratory Results 08/31/17 04:20 08/31/17 09/01/17 09/02/17 05:59 05:59 05:59 Intake Total 1383 1000 Output Total 500 250 Balance 1383 500 -250 PT 18.3 SEC (12.0-15.0) H 08/31/17 04:20 INR 1.50 (0.83-1.16) H 08/31/17 04:20 AAOx4, +FC PERRL, EOMI, no facial droop MIGUEL A x4 + light touch C/D/I ICD10 Worksheet Patient Problems: Problems Problem Status Onset Back pain Acute T12 compression fracture Acute
--- NOTE | 2017-09-01 11:31 | GOP ---
[f rep st] OPERATIVE REPORT DATE OF OPERATION: 08/31/2017 SURGEON: Danny Paz MD NEUROSURGEON: Danny Paz MD SECTION LEADER: None. ANESTHESIA: Was IV conscious sedation. PREOPERATIVE DIAGNOSIS: T12 compression fracture. POSTOPERATIVE DIAGNOSIS: T12 compression fracture. PROCEDURE PERFORMED: Bi-pedicular access for a T12 kyphoplasty. FINDINGS: A successful kyphoplasty. SPECIMENS: There were no specimens. There were no drains. ESTIMATED BLOOD LOSS: Was 5 cc. Fluids and urine output were per the anesthesia record. INDICATIONS: The patient is a 77-year-old woman with osteoporosis. She had a recent fall with a T12 compression fracture, and her pain was under quite poor control in the brace. She has been spending most of her time in bed. Therefore, we scheduled for a T12 kyphoplasty. She was on Coumadin, so we had to wait a few days for her INR to come down, but we are proceeding electively with this procedur e today. DESCRIPTION OF PROCEDURE: After informed consent was obtained from the patient, the patient was brou ght to the operating room and a formal time-out was performed, identifying the patient by name, medic al record number, and date of . Preoperative antibiotics were given. Conscious sedation with p ropofol was initiated by anesthesia. The patient was turned to the prone position on the Jesus tab le. The lumbar region was prepped and draped in the normal sterile fashion. The pedicles of T12 wer e localized using fluoroscopy, and the pedicle entry sites were marked. Both sides were infiltrated with about 15 cc of 0.25% Marcaine with epinephrine for local analgesia. Stab incisions were made ov er the pedicle entry sites, and the 8-gauge kyphoplasty trocars were introduced into the pedicle. Us ing AP and lateral fluoroscopy, these were advanced into the proximal vertebral body. The hand drill was then used to drill holes for the kyphoplasty balloons, which were placed under fluoroscopy into the vertebral body. These were then inflated under direct visualization with care not to exceed the maximum pressures. After we had good reduction of the fracture fragments with the balloons, the ball oons were removed and we began filling with methylmethacrylate cement. A total of 4 cc of cement was instilled through each trocar carefully checking after each aliquot with AP and lateral fluoroscopy. This appeared to have a good fill with interdigitation across the midline. At this point, the bone fillers and trocars were removed without any cement coming posteriorly outside of the vertebral body . Final AP and lateral x-rays were performed, which showed good filling and reduction of the fractur e fragments. The patient was turned back into the supine position and was taken to the PACU in stabl e condition. There were no operative complications. I was scrubbed and present for the entire proce dure. /[id number]/MODL
--- NOTE | 2017-09-01 11:44 | HOSPPROG ---
Hospitalist Progress Note Assessment/Plan: 77y female with fall and c/o back pain. #compression fx -kypho POD #1 -doing well -new pain resolved -still having chronic back pain #Pain -cont meds #AZAEL -better -dehydration -poor po intake -recheck in am #Hx dvt -restart after procedure #Bipolar -home meds #Confusion -baseline unclear -family not concerned -cont to follow -may need outpt neurology consult #Constipation -bowel therapy #Dispo -will need SNF -PT/OT -D/W CM Subjective: Up in the chair. Minimal verbal interaction. at bedside. Objective: Vital Signs Temp Pulse Resp BP Pulse Ox 36.8 C 71 13 101/62 93 09/01/17 07:59 09/01/17 07:59 09/01/17 07:59 09/01/17 07:59 09/01/17 07:59 Laboratory Results 08/31/17 04:20 08/31/17 09/01/17 09/02/17 05:59 05:59 05:59 Intake Total 1383 1000 Output Total 500 250 Balance 1383 500 -250 PT 18.3 SEC (12.0-15.0) H 08/31/17 04:20 INR 1.50 (0.83-1.16) H 08/31/17 04:20 - Physical Exam Constitutional: appears nourished, chronically ill appearing Eyes: PERRL, anicteric sclera Ears, Nose, Mouth, Throat: moist mucous membranes, hearing normal Cardiovascular: No JVD, No edema Respiratory: no respiratory distress, reduced air movement Gastrointestinal: No tenderness, No ascites Skin: warm, normal color Musculoskeletal: pain with ROM, generalized weakness Psychiatric: not anxious, poor insight, poor judgement, poor memory ICD10 Worksheet Patient Problems: Problems Problem Status Onset Back pain Acute T12 compression fracture Acute
--- NOTE | 2017-09-01 15:49 | ASMTCMCOM ---
CM Note CM Note Notes: PT/OT rec SNF. Referrals sent to [facility] and [facility] SNFs, pt and chose [facility] who can accept pt. D/c plan of care: [facility] SNF when medically stable. Date Signed: 09/01/2017 03:48 PM Electronically Signed By:MARGIE Eugene
[2017-09-01] MEDS: DESIPRAMINE HCL 50 MG TAB PO SCH (21:41)
[2017-09-02] MEDS: oxyCODONE IR 5 MG TAB PO PRN (02:37)
[2017-09-02] MEDS: DIAZEPAM 5 MG TAB PO PRN (03:47)
[2017-09-02] MEDS: TIMOLOL 0.5% 15 ML OPHT.BTL EACHEYE SCH (09:07)
[2017-09-02] MEDS: LITHIUM CARBONATE ER 450 MG TAB PO SCH (09:08)
[2017-09-02] MEDS: CALCIUM CARB W/VIT D 500 MG TAB PO SCH (09:08)
[2017-09-02] MEDS: PRESERVISION AREDS2 FORMULA EYE VIT 1 EACH PO SCH ×2 (09:08→21:21)
[2017-09-02] MEDS: CHOLECALCIFEROL VIT D3 1,000 UNITS TAB PO SCH (09:08)
[2017-09-02] MEDS: SENNOSIDES/DOCUSATE SODIUM TAB PO SCH ×2 (09:09→21:21)
[2017-09-02] MEDS: POLYETHYLENE GLYCOL 3350 17 GM PKT PO PRN (09:14)
[2017-09-02] MEDS: MAGNESIUM HYDROXIDE 30 ML UDCUP PO PRN ×2 (09:15→21:23)
[2017-09-02] MEDS: ACETAMINOPHEN 325 MG TAB PO PRN (13:34)
--- NOTE | 2017-09-02 13:36 | HOSPPROG ---
Hospitalist Progress Note Assessment/Plan: 77y female with fall and c/o back pain. #compression fx -kypho POD #2 -pain is better but has ongoing chronic back pain #Pain -cont meds #constipation -resolved #AZAEL -creat is 1 #Hx dvt -restarted Coumadin #Bipolar -home meds #Confusion -baseline unclear - says she is close to her baseline, CM spoke to her son and he was concerned she isn't at her baseline -cont to follow -may need outpt neurology consult #Constipation -resolved #Plan: hopefully, dc in the morning to rehab. will add Melatonin for sleep ( avoiding any meds that will cause increased confusion) Subjective: Erica said she is always in pain. Objective: Vital Signs Temp Pulse Resp BP Pulse Ox 36.9 C 79 18 108/65 96 09/02/17 11:39 09/02/17 11:39 09/02/17 11:39 09/02/17 11:39 09/02/17 11:39 Laboratory Results 09/02/17 06:59 09/01/17 09/02/17 09/03/17 05:59 05:59 05:59 Intake Total 1000 200 250 Output Total 500 450 Balance 500 -250 250 PT 18.3 SEC (12.0-15.0) H 08/31/17 04:20 INR 1.50 (0.83-1.16) H 08/31/17 04:20 - Physical Exam Constitutional: appears nourished, uncomfortable Eyes: PERRL Ears, Nose, Mouth, Throat: hearing normal Cardiovascular: regular rate and rhythym Respiratory: no respiratory distress Gastrointestinal: normoactive bowel sounds Skin: warm Musculoskeletal: generalized weakness Psychiatric: interacting appropriately, poor memory ICD10 Worksheet Patient Problems: Problems Problem Status Onset Back pain Acute T12 compression fracture Acute
[2017-09-02] MEDS ORDERED: WARFARIN SODIUM 5 MG TAB PO SCH (16:00)
--- NOTE | 2017-09-02 16:18 | ASMTCMCOM ---
CM Note CM Note Notes: Reviewed chart, spoke with REECE Norton and Jeaneth Newberry NP regarding discharge plan of care, pt's progress. Per Cierra, pt with recent change in cognition, increased shuffling gait. Discussed potential discharge plan with pt's son, Umang. Per Umang, his "mom can't complete a single thought, is very forgetful and has had a large change in her mental status since last week." Concerns relayed to ASHLYN Eric. Pt's discharge placed on hold for further observation. Plan remains for pt to discharge to [facility] when medically stable. CM will continue to follow. Current Discharge Plan: [facility] Date Signed: 09/02/2017 04:17 PM Electronically Signed By:Lyubov Zheng RN
[2017-09-02] MEDS: ACETAMINOPHEN 500 MG TAB PO SCH ×2 (16:40→21:21)
[2017-09-02] MEDS ORDERED: MELATONIN 3 MG TAB PO SCH (21:00)
[2017-09-02] MEDS: DESIPRAMINE HCL 50 MG TAB PO SCH (21:21)
[2017-09-02] MEDS: DICLOFENAC SODIUM 1% 100 GM GEL TP SCH (21:21)
[2017-09-03] MEDS: oxyCODONE IR 5 MG TAB PO PRN ×3 (02:50→14:26)
[2017-09-03] MEDS: DICLOFENAC SODIUM 1% 100 GM GEL TP SCH ×3 (05:07→16:33)
[2017-09-03 05:31] LABS: INR 1.08 (0.83-1.16); PROTIME(PATIENT) 14.2 SEC (12.0-15.0)
[2017-09-03] MEDS: PRESERVISION AREDS2 FORMULA EYE VIT 1 EACH PO SCH (07:25)
[2017-09-03] MEDS: CALCIUM CARB W/VIT D 500 MG TAB PO SCH (08:26)
[2017-09-03] MEDS: SENNOSIDES/DOCUSATE SODIUM TAB PO SCH (08:26)
[2017-09-03] MEDS: LITHIUM CARBONATE ER 450 MG TAB PO SCH (08:26)
[2017-09-03] MEDS: CHOLECALCIFEROL VIT D3 1,000 UNITS TAB PO SCH (08:26)
[2017-09-03] MEDS: TIMOLOL 0.5% 15 ML OPHT.BTL EACHEYE SCH (08:27)
[2017-09-03] MEDS: ACETAMINOPHEN 500 MG TAB PO SCH ×2 (08:29→16:32)
--- NOTE | 2017-09-03 12:03 | HOSPPROG ---
Hospitalist Progress Note Assessment/Plan: 77y female with fall and c/o back pain. #compression fx -kypho POD #3 -pain is better but has ongoing chronic back pain -trial of Voltaren lotion #Pain -cont meds #constipation -resolved #AZAEL -creat is 1.1 #Hx dvt -restarted Coumadin #Bipolar -home meds #Confusion -baseline unclear -patient states she gets a bit of confusion at night, following commands well today w PT, getting herself dressed -may need outpt neurology consult #Constipation -resolved #Plan: dc to rehab today Subjective: Erica says she is feeling better today, no complaints. Objective: Vital Signs Temp Pulse Resp BP Pulse Ox 36.4 C 64 20 129/88 H 99 09/03/17 07:18 09/03/17 07:18 09/03/17 07:18 09/03/17 07:18 09/03/17 07:18 Laboratory Results 09/03/17 04:19 09/02/17 09/03/17 09/04/17 05:59 05:59 05:59 Intake Total 200 400 Output Total 450 550 Balance -250 -150 PT 14.2 SEC (12.0-15.0) 09/03/17 04:19 INR 1.08 (0.83-1.16) 09/03/17 04:19 - Physical Exam Constitutional: appears nourished, chronically ill appearing Eyes: PERRL Ears, Nose, Mouth, Throat: hearing normal Respiratory: no respiratory distress Skin: warm Musculoskeletal: generalized weakness Neurologic: other (alert and conversant) Psychiatric: interacting appropriately, not encephalopathic, poor memory ICD10 Worksheet Patient Problems: Problems Problem Status Onset Back pain Acute T12 compression fracture Acute
--- NOTE | 2017-09-03 12:37 | PDIAF ---
- Diagnosis Diagnosis: compression fx s/p kyphoplasty,bipolar disorder, hx of dvt Code Status: Full Code - Medication Management Discharge Medications: Medications to Continue on Transfer CALCIUM CARBONATE/VITAMIN D3 [CALCIUM + D 600 MG TABLET] 1 tab PO DAILY [Last Taken 08/30/17 08:00] Warfarin Sodium [Coumadin 5MG (*)] 5 mg PO SUMOTUTHFRSA@1600 10/25/11 [Last Taken 08/27/17] Alendronate Sodium [Fosamax 70 MG (*)] 70 mg PO SA@0700 08/16/17 [Last Taken 03/19] Desipramine HCl [Norpramin 50 mg (*)] 50 mg PO HS 08/16/17 [Last Taken 08/29/17 21:00] Vit C/Dl-E AC/Lut/Copper/Znox [Preservision Softgel] 1 cap PO BID 08/16/17 [ Last Taken 08/30/17 08:00] Timolol 0.5% [TIMOPTIC 0.5% (*)] 1 drops EACHEYE DAILY 08/28/17 [Last Taken 03/19 08:00] Cholecalciferol Vit D3 [Vitamin D3 (*)] 2,000 units PO DAILY 08/30/17 [Last Taken 08/30/17 08:00] [place] Carbonate ER [Eskalith Cr 450 mg (*)] 450 mg PO DAILY 08/30/17 [Last Taken 08/30/17 08:00] Warfarin Sodium [Coumadin 5MG (*)] 7.5 mg PO WE@1600 08/30/17 [Last Taken ] Diclofenac Sodium 1% [Voltaren Gel (*)] 4 gm TP QID gel 09/03/17 [Last Taken Unknown] Melatonin [Melatonin 3 MG (*)] 3 mg PO HS tab 09/03/17 [Last Taken Unknown] Polyethylene Glycol 3350 [Miralax 17 gm (*)] 17 gm PO DAILY PRN pkt 09/03/17 [ Last Taken Unknown] Sennosides/Docusate Sodium [Senokot-S] 1 - 2 tab PO BID tab 09/03/17 [Last Taken Unknown] oxyCODONE IR [Oxycodone Ir (*)] 2.5 - 5 mg PO Q3HRS PRN tab 09/03/17 [Last Taken Unknown] Discharge Medications: Refer to the Discharge Home Medication list for PRN reason. - Orders Services needed: Physical Therapy, Occupational Therapy, Speech Language Pathologist Diet Recommendation: no restrictions on diet Diet Texture: Regular Texture Diet Additional Instructions: if patient has ongoing confusion; recommendation is for her to see a geriatric psychiatrist or neurologist - Labs/Radiology PT/INR Date: 09/05/17 (q 3 days till stable) - Follow Up Care Current Providers and Referrals: Melanie Watson NP [Primary Care Provider] -
--- NOTE | 2017-09-03 13:19 | GDS ---
[f rep st] DISCHARGE SUMMARY DISCHARGE DIAGNOSES: 1. T12 compression fracture, status post kyphoplasty. 2. Pain due to T12 compression fracture. 3. Constipation. 4. Acute kidney injury. 5. History of deep venous thrombosis. 6. Bipolar. 7. Confusion. 8. Constipation. CONSULTATION: Dr. Danny Paz. HISTORY OF PRESENT ILLNESS: The patient is a 77-year-old woman with a past medical history of bipolar disorder and remote history of DVT who presented to the emergency room with a T12 compression fracture. She was to come in for kyphoplasty in the outpatient setting, but the pain became so severe she was not able to stay home, so she was admitted for further care. She was seen and evaluated by neurosurgical services. On September 01, she had a T12 kyphoplasty. Her pain is somewhat improved, did not resolve it completely, but she is able to ambulate well. Today, she will be going to a [facility]. HOSPITAL COURSE: 1. T12 compression fracture, status post kyphoplasty. 2. Pain, overall improved. 3. Constipation, resolved. 4. Acute kidney injury. Creatinine is 1.1. 5. History of DVT. Coumadin has been restarted. INR will be monitored in the outpatient setting. 6. Bipolar disorder. Home medications have been resumed. 7. Confusion. I am unclear of her baseline. She has bipolar disorder. The patient told me she does indeed get confused at times at night. She has been on several medications that may have contributed to that during her stay, which have been stopped. Recommending that she follow up with a [facility] psychiatrist or neurologist in the outpatient setting. She is alert and oriented today. 8. Constipation, resolved. DISCHARGE CONDITION: Stable. Blood pressure is 129/88, heart rate is 64, respiratory rate is 20, O2 saturation on room air 99%, temp is 36.4 Celsius. DISCHARGE MEDICATIONS: Please see the EMR. DISCHARGE INSTRUCTIONS: 1. Recommending that speech therapy and PT and OT work with her at the rehab facility. 2. To follow up to see a [facility] psychiatrist or neurologist as the family is concerned about her confusion. Greater than 30 minutes discharging and coordinating the patient's care. /[id number]/MODL MTDD
--- NOTE | 2017-09-03 15:30 | ASMTCMCOM ---
CM Note CM Note Notes: Pt medically stable for d/c to [facility]. Orders sent in [employer]. REECE Norton to call report. Pt updated. Teodora with [facility] scheduled [facility] transport for 1630. Date Signed: 09/03/2017 03:29 PM Electronically Signed By:MARGIE Eugene
[2017-09-03 15:41] VITALS: BP 142/96
[2017-09-03] MEDS ORDERED: WARFARIN SODIUM 5 MG TAB PO SCH (16:00)
[2017-09-05] MEDS ORDERED: ALENDRONATE SODIUM 70 MG TAB PO SCH (07:00)
--- NOTE | 2017-09-08 07:10 | PQFORM ---
PHYSICIAN QUERY FORM Needs Your Response This query form is being sent to you to assure this patient record is coded properly. Please respond to the question below: [employer]PERT QUESTION: Jeaneth, This patient has a history of osteoporosis and is on Fosamax. Can this thoracic compression fracture be further described as: traumatic fracture in someone with osteoporosis ___x___ osteoporotic fracture traumatic fracture in setting of osteopenia other unknown Thank you for clarifying, KEVIN Rodriguez HIM Coding INSTRUCTIONS FOR RESPONSE: Answer question by clicking on the "Edit Document" button. Move cursor to area below the stars. When complete, hit "Save." Click on the "Sign" button, then click "Sign" again. Type in your PIN and hit "Enter." MTDD
--- NOTE | 2017-09-21 11:16 | GPROG ---
[f rep st] PROGRESS NOTE POST-ANESTHETIC EVALUATION The patient was taken to the recovery room in stable condition. Respiratory and cardiovascular statu s were similar to preop condition. Patient was mildly sleepy and able to participate in evaluation. Postop nausea and vomiting, as well as pain were well-controlled. No anesthetic complications were noted at the time. /[id number]/MODL
== END 2017-09-03 16:46 | DRG 516 ==
LOC: OBSVTOIN 21:31 → F3N 22:03
PROVIDERS: ADMIT Internal Medicine; ATTEND Family Medicine
PROC: 0PS43ZZ Reposition Thoracic Vertebra, Percutaneous Approach (ICD-10-PCS; principal; 2017-08-31 15:30)
PROC: 0PU43JZ Supplement Thoracic Vertebra with Synthetic Substitute, Percutaneous Approach (ICD-10-PCS; principal; 2017-08-31 15:30)
DX: M80.08XA Age-related osteoporosis with current pathological fracture, vertebra(e), initial encounter for fracture (principal); N17.9 Acute kidney failure, unspecified; F31.9 Bipolar disorder, unspecified; K59.00 Constipation, unspecified; R41.0 Disorientation, unspecified; Z86.718 Personal history of other venous thrombosis and embolism; Z79.01 Long term (current) use of anticoagulants; Z87.891 Personal history of nicotine dependence; W19.XXXA Unspecified fall, initial encounter; Y92.9 Unspecified place or not applicable
CPT/HCPCS: 96374; 97116-GP; 97162-GP; 97165-GO; 97535-GO; C1713; G8978-GP-CK; G8979-GP-CI; G8987-GO-CK; G8988-GO-CJ; J0171; J2001; J2405; J2704; J3010; J3360; J3430; Q9967

== ENCOUNTER 2017-09-23 09:41 | Inpatient (IN) | payer OTHER ==
--- NOTE | 2017-09-23 10:03 | EDPHY ---
H & P Stated Complaint: AMS, weakness Time Seen by Provider: 09/23/17 09:59 HPI/ROS: CHIEF COMPLAINT: Increased confusion HISTORY OF PRESENT ILLNESS: The patient presents the ED with increasing confusion, weakness, difficulty ambulating and increased sleeping at home. The patient's past medical history is significant for recent fall resulting in a T12 compression fracture. She is status post kyphoplasty earlier this month. She was initially discharged to rehab and has been at home for the past week. The patient's only complaint is mild dyspnea and global weakness. She denies any fever, cough or congestion. She denies additional acute complaints. The patient does take lithium for bipolar mood disorder. The patient is also on a number of psychoactive medications including trazodone, oxycodone and desipramine. REVIEW OF SYSTEMS: A comprehensive 10 point review of systems is otherwise negative aside from elements mentioned in the history of present illness. Source: Patient, Family - Personal History Current Tetanus/Diphtheria Vaccine: Yes Current Tetanus Diphtheria and Acellular Pertussis (TDAP): Yes - Medical/Surgical History Hx Asthma: No Hx Chronic Respiratory Disease: No Hx Diabetes: No Hx Cardiac Disease: Yes Hx Renal Disease: No Hx Cirrhosis: No Hx Alcoholism: No Hx HIV/AIDS: No Hx Splenectomy or Spleen Trauma: No Other PMH: DVT, depression, osteoporosis, diverticulitis, L12 fx, macular degenertion, DDD - Social History Smoking Status: Former smoker - Physical Exam Exam: General Appearance: Elderly female, no acute distress Eyes: Pupils equal and round no pallor or injection, slight proptosis ENT, Mouth: Dry mucous membranes Respiratory: There are no retractions, lungs are clear to auscultation Cardiovascular: Regular rate and rhythm Gastrointestinal: Abdomen is soft and nontender, no masses, bowel sounds normal Neurological: 5/5 strength bilateral lower extremities Skin: Warm and dry, no rashes Musculoskeletal: Neck is supple nontender Extremities: symmetrical, full range of motion Constitutional: Initial Vital Signs Temperature (C) 36.9 C 09/23/17 09:48 Heart Rate 94 09/23/17 09:48 Respiratory Rate 18 09/23/17 09:48 Blood Pressure 97/68 L 09/23/17 09:48 O2 Sat (%) 94 09/23/17 09:48 O2 Delivery Mode Room Air Allergies/Adverse Reactions: Penicillins Allergy (Verified 08/31/17 13:12) Hives Home Medications: Medication Instructions Recorded Warfarin Sodium [Coumadin 5MG (*)] 5 mg PO SUMOTUTHFRSA@1600 10/25/11 Alendronate Sodium [Fosamax 70 MG 70 mg PO SA@0700 08/16/17 (*)] Desipramine HCl [Norpramin 50 mg 50 mg PO HS 08/16/17 (*)] Vit C/Dl-E AC/Lut/Copper/Znox 1 cap PO BID 08/16/17 [Preservision Softgel] Timolol 0.5% [TIMOPTIC 0.5% (*)] 1 drops EACHEYE DAILY 08/28/17 Cholecalciferol Vit D3 [Vitamin D3 2,000 units PO DAILY 08/30/17 (*)] [place] Carbonate ER [Eskalith Cr 450 mg PO DAILY 08/30/17 450 mg (*)] Warfarin Sodium [Coumadin 5MG (*)] 7.5 mg PO WE@1600 08/30/17 Acetaminophen [Tylenol 325mg (*)] 325 mg PO Q6 PRN 09/23/17 Calcium Carbonate/Vitamin D3 1 each PO DAILY 09/23/17 [Calcium 600 + Vit D3 Caplet] Melatonin [Melatonin 3 MG (*)] 9 mg PO HS 09/23/17 oxyCODONE IR [Oxycodone Ir (*)] 10 mg PO Q6HRS PRN 09/23/17 traZODone [traZODONE 100MG (*)] 200 mg PO HS 09/23/17 Medical Decision Making - Diagnostics EKG Interpretation: EKG: Complete interpretation has been separately recorded in the [facility] archive. Summary impression: Sinus rhythm, left anterior fascicular block ED Course/Re-evaluation: The patient presents to the ED for evaluation of weakness, difficulty walking and slight confusion in the setting of a recent hospitalization and stay in rehabilitation. The patient has had decreased oral intake over the past week. Her workup in the emergency department does demonstrate renal insufficiency with a creatinine of 1.6. She has no evidence of hyperkalemia. The patient's lithium level is also elevated at 1.9. I find no focality on the patient's neurologic examination. Her gait was not assessed but reported to be abnormal per her . The patient presents to the ED with symptoms likely related to lithium toxicity in the setting of dehydration. She will be admitted for IV for rehydration and hopeful normalization of her lithium level. Consultation was made with the hospitalist service. She will be admitted by Dr. Comfort Hawkins. Differential Diagnosis: Differential diagnosis considered includes lithium toxicity, dehydration, renal failure, metabolic abnormality, urinary tract infection - Data Points Laboratory Results: Laboratory Results 09/23/17 10:11 09/23/17 10:11 09/23/17 09/23/17 09/23/17 10:19 10:11 10:11 WBC RBC Hgb POC Hgb 13.6 gm/dL gm/dL (12.6-16.3) Hct POC Hct 40 % % (38-47) MCV MCH MCHC RDW Plt Count MPV Neut % (Auto) Lymph % (Auto) [place] % (Auto) Eos % (Auto) Baso % (Auto) Nucleat RBC Rel Count Absolute Neuts (auto) Absolute Lymphs (auto) Absolute Monos (auto) Absolute Eos (auto) Absolute Basos (auto) Absolute Nucleated RBC Immature Gran % Immature Gran # POC Sodium 136 mEq/L mEq/L (135-145) Sodium 134 mEq/L L mEq/L (135-145) POC Potassium 4.2 mEq/L mEq/L (3.3-5.0) Potassium 4.4 mEq/L mEq/L (3.3-5.0) POC Chloride 103 mEq/L mEq/L (97-110) Chloride 104 mEq/L mEq/L (97-110) Carbon Dioxide 23 mEq/l mEq/l (22-31) Anion Gap 7 mEq/L L mEq/L (8-16) POC BUN 28 mg/dL H mg/dL (7-23) BUN 29 mg/dL H mg/dL (7-23) Creatinine 1.5 mg/dL H mg/dL (0.6-1.0) POC Creatinine 1.6 mg/dL H mg/dL (0.6-1.0) Estimated GFR 33 Glucose 106 mg/dL H mg/dL (70-100) POC Glucose 108 mg/dL H mg/dL (70-100) Calcium 11.0 mg/dL H mg/dL (8.5-10.4) Phosphorus 3.9 mg/dL mg/dL (2.5-4.5) Correll 1.9 mEq/L H mEq/L (0.6-1.2) 09/23/17 10:11 WBC 13.38 10^3/uL H 10^3/uL (3.80-9.50) RBC 4.08 10^6/uL L 10^6/uL (4.18-5.33) Hgb 13.1 g/dL g/dL (12.6-16.3) POC Hgb Hct 40.0 % % (38.0-47.0) POC Hct MCV 98.0 fL fL (81.5-99.8) MCH 32.1 pg pg (27.9-34.1) MCHC 32.8 g/dL g/dL (32.4-36.7) RDW 13.5 % % (11.5-15.2) Plt Count 178 10^3/uL 10^3/uL (150-400) MPV 11.5 fL fL (8.7-11.7) Neut % (Auto) 84.8 % H % (39.3-74.2) Lymph % (Auto) 10.5 % L % (15.0-45.0) [place] % (Auto) 3.9 % L % (4.5-13.0) Eos % (Auto) 0.2 % L % (0.6-7.6) Baso % (Auto) 0.3 % % (0.3-1.7) Nucleat RBC Rel Count 0.0 % % (0.0-0.2) Absolute Neuts (auto) 11.34 10^3/uL H 10^3/uL (1.70-6.50) Absolute Lymphs (auto) 1.41 10^3/uL 10^3/uL (1.00-3.00) Absolute Monos (auto) 0.52 10^3/uL 10^3/uL (0.30-0.80) Absolute Eos (auto) 0.03 10^3/uL 10^3/uL (0.03-0.40) Absolute Basos (auto) 0.04 10^3/uL 10^3/uL (0.02-0.10) Absolute Nucleated RBC 0.00 10^3/uL 10^3/uL (0-0.01) Immature Gran % 0.3 % % (0.0-1.1) Immature Gran # 0.04 10^3/uL 10^3/uL (0.00-0.10) POC Sodium Sodium POC Potassium Potassium POC Chloride Chloride Carbon Dioxide Anion Gap POC BUN BUN Creatinine POC Creatinine Estimated GFR Glucose POC Glucose Calcium Phosphorus Correll Point of Care Test Results: Chemistry 09/23/17 10:19 POC Sodium 136 mEq/L mEq/L (135-145) POC Potassium 4.2 mEq/L mEq/L (3.3-5.0) POC Chloride 103 mEq/L mEq/L (97-110) POC BUN 28 mg/dL H mg/dL (7-23) POC Creatinine 1.6 mg/dL H mg/dL (0.6-1.0) POC Glucose 108 mg/dL H mg/dL (70-100) ISTAT H&H 09/23/17 10:19 POC Hgb 13.6 gm/dL gm/dL (12.6-16.3) POC Hct 40 % % (38-47) Departure - Departure Disposition: [facility] Inpatient Acute Clinical Impression: Dehydration, Confusion, Renal insufficiency, Correll toxicity Condition: Fair Referrals: Mounika Melendez MD [Primary Care Provider] - As per Instructions
--- NOTE | 2017-09-23 10:14 | CPEKG ---
Heart Rate: 90 RR Interval: 667 P-R Interval: 172 QRSD Interval: 102 QT Interval: 372 QTC Interval: 455 P [place]: 31 QRS [place]: -68 T Wave [place]: 37 EKG Severity - ABNORMAL ECG - EKG Impression: SINUS RHYTHM EKG Impression: PROBABLE LEFT ATRIAL ABNORMALITY EKG Impression: LEFT ANTERIOR FASCICULAR BLOCK Electronically Signed By: Ron Cali 23-Sep-2017 11:47:59
[2017-09-23 10:21] LABS: PLATELET COUNT 178 10^3/uL (150-400)
[2017-09-23] MEDS ORDERED: NS 1,000 ML IV ONE (11:11)
[2017-09-23 12:31] LABS: INR 1.05 (0.83-1.16); PROTIME(PATIENT) 13.9 SEC (12.0-15.0)
--- NOTE | 2017-09-23 12:36 | ASMTCASEMG ---
Living Arrangements What is your living Answers: With Spouse arrangement? Who do you live with? Type Of Residence Stairs in Home Answers: Yes Notes: Single level home, 5 Environment steps from garage Case Management Evaluation Functional: Able to Answers: No return Home with Prior Level of Function/Care Functional: ADL / IADL Answers: Mobility Issues Performance Deficits Due to: Vision Deficits Psychosocial Needs: Answers: Active Substance Abuse Notes: reported by Behavioral [facility] Issue Discharge Plan Comments Coordination Status Comments Notes: Pt in FED accompanied by her Anderson. Anderson expressed concern about her level of opiate use following surgery in March 2017 and a procedure earlier this month. He stated that her pain "should be a lot less than it is". He has to manage and hide her pills and he believes she is taking too much. Pt did not verbally respond to this SW and she did not make eye contact. Her eyes were open and she gazed forward during the conversation. She appeared confused and disconnected. She had noticeable, involuntary muscle movements and twitches. Anderson reported that the twitches have increased over the last year but he is not sure when they began. He also reported that the pt. has macular degeneration and does not make eye contact. Pt. utilized [facility] but Anderson indicated that they were not happy with the service. [facility] was coordinating in home PT services but services have not been arranged yet. Anderson is the primary care provider for the pt at this time, they receive no assistance and he indicated that he is exhausted and needs help. [facility] plans TBD case management to follow. Date Signed: 09/23/2017 12:35 PM Electronically Signed By:Heather Sullivan LCSW
--- NOTE | 2017-09-23 12:39 | ASMTLACE ---
LACE Length of stay for Answers: Less than 1 day current admission Acuity / Level of Answers: Yes Care: Did the patient have an inpatient admission? Comorbidities - select Answers: Opioid dependence all that apply / Chronic pain # of Emergency department Answers: 1-2 visits in the last 6 months Score: 8 Date Signed: 09/23/2017 12:38 PM Electronically Signed By:Heather Sullivan LCSW
[2017-09-23] MEDS: NS 1,000 ML IV SCH ×2 (13:49→21:04)
[2017-09-23] MEDS ORDERED: BISACODYL 10 MG SUPP PR PRN (14:38)
[2017-09-23] MEDS ORDERED: ONDANSETRON 4 MG/2 ML VIAL IVP PRN (14:38)
[2017-09-23] MEDS ORDERED: LACTULOSE 20 GM/30 ML UDCUP PO PRN (14:38)
[2017-09-23] MEDS ORDERED: ONDANSETRON DISINTEGRATING 4 MG TAB PO PRN (14:38)
--- NOTE | 2017-09-23 15:11 | GHP ---
[f rep st] HISTORY AND PHYSICAL DATE OF ADMISSION: 09/23/2017 CHIEF COMPLAINT: Increased confusion, as well as lethargy. HISTORY OF PRESENT ILLNESS: The patient is a 77-year-old female with a past medical history of bipolar disorder and remote history of DVT on chronic anticoagulation who was recently discharged after having a compression fracture and kyphoplasty. After her discharge, she was brought to [facility] for rehabilitation. She was discharged approximately a week ago. The patient had been complaining of ongoing back pain. She saw her primary care provider and her oxycodone was increased to 10 mg q.6 hours. The patient's gave this scheduled and also was given her p.r.n. Tylenol. Her brought her here because she has been sleepy and not herself. He thought she had been eating and drinking. He commented that Erica was not motivated to move. She has also been constipated for approximately 4 days. In addition, she went to [facility] yesterday to get further evaluation for a spine ablation due to her ongoing back pain. She has been off her Coumadin in case this was to occur. Right now, this is in a holding pattern because she is in the hospital. During my interview, the patient was having difficulty answering my questions. Her questions were mainly answered by her and by her son who were both at the bedside. Her only complaint is that she short of breath and she said this is chronic. She denies any chest pain, fevers, or chills. She says that she is usually not very hungry. PAST MEDICAL HISTORY: 1. L12 fracture. 2. Macular degeneration. 3. Degenerative disk disease. 4. DVT. 5. Depression. 6. Osteoporosis. 7. History of diverticulitis. PAST SURGICAL HISTORY: 1. Appendectomy. 2. Kyphoplasty in August 2017. FAMILY HISTORY: Parents are . SOCIAL HISTORY: She is and lives with her . They have been for 57 years. She drinks a glass of white wine occasionally. She has 2 children. She has noted that she is a prior smoker, but per her family, she quit approximately a month ago. ALLERGIES: Penicillin. HOME MEDICATIONS: Tylenol 325 mg q.6 hours, trazodone 200 mg p.o. q.h.s., vitamin D 2000 units daily, calcium and vitamin D 1 tablet daily, Fosamax 70 mg every Thursday, Timolol 0.5% 1 drop each eye daily, melatonin 9 mg p.o. q.h.s., lithium carbonate ER 450 mg daily, Nopramin 50 mg p.o. q.h.s., Coumadin 5 mg on Thursday, Thursday, Thursday, , Thursday, Thursday, Coumadin 7.5 mg Thursday, Oxy IR 10 mg p.o. q.6 hours p.r.n. REVIEW OF SYSTEMS: A 10-point review of system was performed and was negative other than pertinent positives in the HPI and past medical history. PHYSICAL EXAMINATION: GENERAL: The patient is a 77-year-old female who appears to be very withdrawn during my interview. She appears to be in poor health. VITAL SIGNS: Blood pressure is 110/68, heart rate of 81, respiratory rate of 18, O2 sats on room air 94%, temperature is 37 degrees Celsius. HEENT: Eyes: She has a gaze and looks toward her right. Her family said this has been going on for quite some time. She has a slight ptosis noted on the right eye. ENT: Her mucous membranes are very dry. Her hearing appears to be intact. NECK: Trachea is midline. CARDIOVASCULAR: She is in a regular rate and rhythm. No murmurs, rubs, or gallops noted. LUNGS: Normal effort respiratory effort. Clear without wheezing, rales, rhonchi. Diminished at the bases. ABDOMEN: Soft, nontender. No rebound. No guarding. SKIN: No rashes or ulcers. MUSCULOSKELETAL: Not evaluated. PSYCHIATRIC: She is alert. She has a very flat affect and is withdrawn. She appears to have poor memory and poor insight. DIAGNOSTIC DATA: Reviewed. CBC shows a white blood cell count of 13.38, hemoglobin 13.1, hematocrit 40, neutrophil percent 84.5, lymphocytes 10.5, mono percent 3.9, eosinophils 0.2. Coags show a Pro time of 13.9, INR of 1.05. Chemistry shows sodium of 136, potassium 4.2, chloride of 103, BUN of 28, creatinine of 1.6, glucose of 108, calcium of 11. Urinalysis shows 1+ leukocyte esterase with 5-10 white blood cells. She has trace bacteria and trace ketones. Toxicology shows a lithium level at 1.9. An EKG was performed, which shows sinus rhythm with a left anterior fascicular block. I reviewed the patient's care with Dr. Ron Cali, emergency room physician. ASSESSMENT/PLAN: 1. Mild lithium toxicity. This should improve with hydration. Will give her normal saline and hold her lithium. I evaluated her EKG and she is not bradycardic and does not have a long QT interval. She does have symptoms of a poor appetite. Will monitor overnight. 2. Chronic pain with chronic continuous opioid use. Her had been giving her scheduled narcotics. At this time, will order a very low dose of narcotics with the goal of trying to keep her on Tylenol. Lidoderm patch was ordered for her back pain. 3. Constipation. Per her , she has not had a bowel movement for days. Will initiate the bowel protocol. 4. Acute renal insufficiency. Due to poor intake. Will hydrate overnight. Recheck labs in the morning. Will avoid any nephrotoxic medications. 5. History of deep vein thrombosis. In further discussion with the , he is not clear how long ago this was, but it sounds like it was more than 25 years ago. Further evaluation with her primary care physician. For now, will resume her Coumadin. 6. Bipolar disorder. Will hold lithium. Recommended that she see a ana- psychiatrist in the outpatient setting to get further evaluation. Her did not seem clear exactly when she was diagnosed and described it as being a unipolar diagnoses. She is also on medication for depression. I will hold both of these because she is sedated. 7. Gait instability with multiple falls. Will have Physical Therapy and Occupational Therapy. 8. Failure to thrive. Per the , she does not eat or drink much on her own. Will ask Dietary to see her, see if small meals and shakes can be provided. 9. Code status. Do not resuscitate. 10. Length of stay. She will be admitted under observation status to see if she improves overnight. This can be further evaluated in the morning. /[id number]/MODL MTDD
[2017-09-23] MEDS: LIDOCAINE 4%/MENTHOL 1% PATCH TD SCH (15:15)
[2017-09-23] MEDS: POLYETHYLENE GLYCOL 3350 17 GM PKT PO SCH ×2 (15:16→21:02)
[2017-09-23] MEDS ORDERED: WARFARIN SODIUM 5 MG TAB PO SCH (16:00)
[2017-09-23] MEDS: PATCH REMOVAL 1 EA PATCH TD SCH (20:02)
[2017-09-23] MEDS: SENNOSIDES/DOCUSATE SODIUM TAB PO SCH (21:02)
[2017-09-24] MEDS: oxyCODONE IR 5 MG TAB PO PRN ×3 (02:44→11:42)
[2017-09-24] MEDS: ACETAMINOPHEN 325 MG TAB PO PRN ×3 (04:19→18:21)
[2017-09-24 04:46] LABS: PLATELET COUNT 171 10^3/uL (150-400)
[2017-09-24 04:52] LABS: INR 1.15 (0.83-1.16); PROTIME(PATIENT) 14.9 SEC (12.0-15.0)
[2017-09-24] MEDS: LIDOCAINE 4%/MENTHOL 1% PATCH TD SCH (07:58)
[2017-09-24] MEDS: SENNOSIDES/DOCUSATE SODIUM TAB PO SCH ×2 (07:58→20:37)
[2017-09-24] MEDS: POLYETHYLENE GLYCOL 3350 17 GM PKT PO SCH ×2 (08:21→20:29)
--- NOTE | 2017-09-24 13:18 | HOSPPROG ---
Hospitalist Progress Note Assessment/Plan: Assessment: 77-year-old female presents with acute encephalopathy likely multifactorial in the setting of acute kidney injury, lithium toxicity, opiate intolerance, hypercalcemia Plan: 1. Acute encephalopathy. Evidenced by global brain dysfunction characterized as confusion, disorientation, impaired memory, all of which are acute changes from the patient's baseline and most likely secondary to a combination of metabolic effects from acute kidney injury and hypercalcemia toxic effects of lithium, toxic effects of opiates which have likely accumulated in her system in the setting of renal dysfunction -I suspect there is a strong element of opiate intolerance, as the patient and her both report expressive aphasia beginning when the patient was started on opiates 2 months ago after experiencing her lumbar compression fracture -I also suspect that the opiates have accumulated in her system in the setting of renal dysfunction -currently alert awake oriented x2 to place and time, not self, with poor concentration, visible expressive aphasia -will perform infectious evaluation to rule out concomitant infection as an exacerbating issue (ESR, CRP, procalcitonin, blood cultures) 2. Acute kidney injury. Most likely secondary to hypovolemia in the setting of poor oral intake, may have also been the effect of lithium toxicity, unclear which precipitated what -continue on normal saline, creatinine improving -continue to hold lithium -continue monitor urine output 3. [place] toxicity. Unclear whether this was a primary coach driver or secondary to accumulation the setting of renal dysfunction, reports no previous episodes of lithium toxicity -although patient has a reported diagnosis of bipolar disease, questions this diagnosis, order outside records from PCP office to determine the exact diagnosis and treatment strategy -hold lithium -monitor daily level, improving with IV fluids 4. Hypercalcemia. Acute, most likely secondary to renal dysfunction and calcium accumulation, improving with IV fluids, continue monitor 5. Chronic pain with continuous opiate dependency and possible opiate intolerance. Patient has a history of chronic lower back pain and her reports that she had not been requiring opiates prior to 2 months ago. After she experienced her compression fracture 2 months ago, the patient has been continuously on opiates, and the does endorse expressive aphasia and some cognitive impairment since that time -will provide very low-dose opiates as needed only for severe pain -attempt to control back pain with non opiate methodology is including heat pad , ice, Lidoderm patch, Tylenol -PT and OT 6. Heart murmur. denies ever being told the patient has a heart murmur, she has a very loud 3/6 early systolic murmur at the apex -get echocardiogram if any of her inflammatory markers are positive, to rule out endocarditis 7. Shortness of breath. Acute, new problem this provider, further workup indicated. reports intermittent but fairly a consistent shortness of breath since her kyphoplasty, and she does have a reported history of remote DVT as well as poor mobility and is at risk for aspiration -EKG with left anterior fascicular block, normal sinus mechanism, personally interpreted -get chest x-ray to rule out aspiration given her leukocytosis 8. Remote history of DVT. Patient recently re-initiated on Coumadin, INR remains subtherapeutic, given her pulmonary symptoms and overall somewhat unusual presentation, provide her with systemic anticoagulation for bridging Diet. Regular Prophylaxis. High risk patient, on therapeutic Lovenox Code. Do not resuscitate Disposition. Anticipated discharge is uncertain this time, upgraded to inpatient admission status for reasonable medical necessity including ongoing acute encephalopathy rendering patient high risk for worsening morbidity and/or mortality if she is discharged at this time without ascertaining the exact cause and treating, also requiring ongoing IV fluids for acute kidney injury and lithium toxicity. Subjective: patient reports ongoing expressive aphasia, back pain Objective: Vital Signs Temp Pulse Resp BP Pulse Ox 36.6 C 80 18 139/83 H 96 09/24/17 07:54 09/24/17 07:54 09/24/17 07:54 09/24/17 07:54 09/24/17 07:54 Laboratory Results 09/24/17 04:28 09/24/17 06:00 09/23/17 09/24/17 09/25/17 05:59 05:59 05:59 Intake Total 1850 Output Total 700 400 Balance 1150 -400 PT 14.9 SEC (12.0-15.0) 09/24/17 04:28 INR 1.15 (0.83-1.16) 09/24/17 04:28 - Physical Exam Constitutional: no apparent distress, chronically ill appearing, uncomfortable, No not in pain (mild) Cardiovascular: systolic murmur (III/ early systolic at apex), No irregularly irregular, No tachycardia, No edema Respiratory: no respiratory distress, no rales or rhonchi, clear to auscultation Gastrointestinal: normoactive bowel sounds, soft, non-tender abdomen, no palpable masses, No distension Genitourinary: no bladder fullness, no bladder tenderness Skin: other (over lower back), No abrasion, No erythema, No induration, No fluctuance, No rash Musculoskeletal: other (no tenderness or abnl over lumbar spine) Neurologic: sensation intact bilaterally, No AAOx3 (AAOx2 (place and time, not self)), No weakness (motor 5/5 bilat UE/LE), No facial droop Psychiatric: anxious, poor memory, other (concentration 0/7), No agitated ICD10 Worksheet Patient Problems: Problems Problem Status Onset Back pain Acute T12 compression fracture Acute Dehydration Acute Confusion Acute Renal insufficiency Acute [place] toxicity Acute
[2017-09-24] MEDS ORDERED: oxyCODONE IR 5 MG TAB PO PRN (13:21)
--- NOTE | 2017-09-24 14:11 | PDMN ---
Medical Necessity Medical necessity: Pt meets inpt criteria per MD order and MCG [id number], Acute Renal Failure, 3 days. Pt presenting w/acute encephalopathy, acute kidney injury, lithium toxicity, opiate intolerance, and hypercalcemia, IVF, PT/OT/SP evals pending. Est LOS>2 MN for further eval, monitoring, and treatment. Status change to inpt 09/24/17 @ 13:21.
[2017-09-24] MEDS: CALCIUM CARB W/VIT D 500 MG TAB PO SCH (15:04)
[2017-09-24] MEDS: TIMOLOL 0.5% 15 ML OPHT.BTL EACHEYE SCH (15:05)
[2017-09-24] MEDS: ENOXAPARIN 60 MG/0.6 ML SYR SC SCH ×2 (15:11→20:38)
--- NOTE | 2017-09-24 15:23 | ASMTCMCOM ---
CM Note CM Note Notes: Pt with hx of bipolar and recent compression fx with kypho admitted for lithium toxicity. Pt had a recent stay at [facility], DC'd a week ago. Currently, OT rec SNF and PT rec HC. CM will continue to follow as pt improves with treatment. Date Signed: 09/24/2017 03:22 PM Electronically Signed By:Ramonita Milton LCSW
[2017-09-24] MEDS ORDERED: WARFARIN SODIUM 5 MG TAB PO SCH (16:00)
[2017-09-24] MEDS ORDERED: WARFARIN SODIUM 7.5 MG TAB PO ONE (16:00)
[2017-09-24] MEDS: PATCH REMOVAL 1 EA PATCH TD SCH (20:02)
[2017-09-24] MEDS: MELATONIN 3 MG TAB PO SCH (20:37)
[2017-09-24] MEDS: PRESERVISION AREDS2 FORMULA EYE VIT 1 EACH PO SCH (20:37)
[2017-09-24] MEDS: traZODone 100 MG TAB PO SCH (20:37)
[2017-09-24] MEDS: NS 1,000 ML IV SCH (20:38)
[2017-09-25 05:24] LABS: PLATELET COUNT 160 10^3/uL (150-400)
[2017-09-25 05:33] LABS: INR 1.69 (0.83-1.16)
--- NOTE | 2017-09-25 08:48 | HOSPPROG ---
Hospitalist Progress Note Assessment/Plan: #Acute toxic encephalopathy: improved MS today, but not at baseline per . Multifactorial with opioids, lithium toxicity #Chronic back pain: per , wasn't needing opioids after kyphoplasty. Will trial off opioids, sched APAP #AZAEL: from decreased PO intake. Resolved with IVFs #[employer] toxicity: resolved. #Bipolar d/o: resume [employer]. Will talk with her PCP Tues about med change #Hypercalcemia: resolved with IVFs #Heart murmur: echo pending #SOB: suspect underlying COPD (hyperexpanded lungs on CXR, personally reviewed) . Euvolemic, echo pending. Rec outpatient PFTs #Leukocytosis: resolved. Cultures NGTD, normal procalcitonin #Remote DVT: on Coumadin, Lovenox bridge (had held med for spinal procedure) Again, FU with PCP. #Diet: regular #DVT ppx: lovenox #Disp: cont inpatient admission for PT/OT, Cr. at bedside Subjective: "still not myself" Objective: Vital Signs Temp Pulse Resp BP Pulse Ox 36.7 C 62 16 151/83 H 98 09/25/17 03:00 09/25/17 03:00 09/25/17 03:00 09/25/17 03:00 09/25/17 03:00 Laboratory Results 09/25/17 04:55 09/25/17 04:55 09/24/17 09/25/17 09/26/17 05:59 05:59 05:59 Intake Total 3050 Output Total 1150 200 Balance 1900 -200 PT 20.0 SEC (12.0-15.0) H 09/25/17 04:55 INR 1.69 (0.83-1.16) H 09/25/17 04:55 - Time Spent With Patient Time Spent with Patient: greater than 35 minutes Time Spent with Patient: Greater than 35 minutes spent on this patients care, greater than 50% of time spent counseling, educating, and coordinating care regarding the above mentioned plan. - Physical Exam Constitutional: no apparent distress Eyes: PERRL Ears, Nose, Mouth, Throat: moist mucous membranes Cardiovascular: regular rate and rhythym Respiratory: no respiratory distress, reduced air movement, No expiratory wheeze , No inspiratory crackles Gastrointestinal: normoactive bowel sounds, johnson's sign Skin: warm Musculoskeletal: full muscle strength Neurologic: CN II-XII Intact, other (alert to hospital, self, not date) Psychiatric: encephalopathic ICD10 Worksheet Patient Problems: Problems Problem Status Onset Confusion Acute Dehydration Acute [employer] toxicity Acute Renal insufficiency Acute Back pain Acute T12 compression fracture Acute
[2017-09-25] MEDS: PRESERVISION AREDS2 FORMULA EYE VIT 1 EACH PO SCH ×2 (09:31→19:57)
[2017-09-25] MEDS: CALCIUM CARB W/VIT D 500 MG TAB PO SCH (09:31)
[2017-09-25] MEDS: CHOLECALCIFEROL VIT D3 1,000 UNITS TAB PO SCH (09:32)
[2017-09-25] MEDS: SENNOSIDES/DOCUSATE SODIUM TAB PO SCH ×2 (09:32→19:56)
[2017-09-25] MEDS: ENOXAPARIN 60 MG/0.6 ML SYR SC SCH ×2 (09:35→19:57)
[2017-09-25] MEDS: POLYETHYLENE GLYCOL 3350 17 GM PKT PO SCH ×2 (09:35→19:57)
[2017-09-25] MEDS: LIDOCAINE 4%/MENTHOL 1% PATCH TD SCH (09:35)
[2017-09-25] MEDS: TIMOLOL 0.5% 15 ML OPHT.BTL EACHEYE SCH (09:37)
--- NOTE | 2017-09-25 14:06 | ASMTCMCOM ---
CM Note CM Note Notes: Pt will need HC PT at DC. Pt was using a [facility] service called [facility] after DC from [facility]. However, they do not offer RN and pt may need this at DC so wanted to switch to HC. [facility] will provide PT and possibly RN. also asked for help getting pt an appt with her opthamologist for her macular degernation. Pt has an appt with Dr Rodriguez from [facility] at their [place] office at [address] [place] [address] [phone] on 09/29 at 3:40. CM to follow. Date Signed: 09/25/2017 02:05 PM Electronically Signed By:Ramonita Milton LCSW
[2017-09-25] MEDS ORDERED: WARFARIN SODIUM 5 MG TAB PO SCH (16:00)
[2017-09-25] MEDS: ACETAMINOPHEN 500 MG TAB PO SCH ×2 (17:34→21:31)
[2017-09-25] MEDS: traMADol 50 MG TAB PO PRN (19:55)
[2017-09-25] MEDS: PATCH REMOVAL 1 EA PATCH TD SCH (19:58)
[2017-09-25] MEDS: MELATONIN 3 MG TAB PO SCH (21:32)
[2017-09-25] MEDS: traZODone 100 MG TAB PO SCH (21:32)
[2017-09-26 04:55] LABS: INR 2.16 (0.83-1.16); PROTIME(PATIENT) 24.1 SEC (12.0-15.0)
[2017-09-26 07:50] VITALS: BP 137/73
[2017-09-26] MEDS: TIMOLOL 0.5% 15 ML OPHT.BTL EACHEYE SCH (10:00)
[2017-09-26] MEDS: POLYETHYLENE GLYCOL 3350 17 GM PKT PO SCH (10:02)
[2017-09-26] MEDS: CALCIUM CARB W/VIT D 500 MG TAB PO SCH (11:02)
[2017-09-26] MEDS: ACETAMINOPHEN 500 MG TAB PO SCH ×2 (11:02→14:18)
[2017-09-26] MEDS: CHOLECALCIFEROL VIT D3 1,000 UNITS TAB PO SCH (11:03)
[2017-09-26] MEDS: SENNOSIDES/DOCUSATE SODIUM TAB PO SCH (11:03)
[2017-09-26] MEDS: PRESERVISION AREDS2 FORMULA EYE VIT 1 EACH PO SCH (11:04)
[2017-09-26] MEDS: LIDOCAINE 4%/MENTHOL 1% PATCH TD SCH (11:04)
[2017-09-26] MEDS: traMADol 50 MG TAB PO PRN (11:12)
--- NOTE | 2017-09-26 12:02 | PDIAF ---
- Diagnosis Diagnosis: AZAEL encephalopathy Code Status: Do Not Resuscitate - Medication Management Discharge Medications: Medications to Continue on Transfer Warfarin Sodium [Coumadin 5MG (*)] 5 mg PO SUMOTUTHFRSA@1600 10/25/11 [Last Taken 09/17/17] Alendronate Sodium [Fosamax 70 MG (*)] 70 mg PO SA@0700 08/16/17 [Last Taken ] Desipramine HCl [Norpramin 50 mg (*)] 50 mg PO HS 08/16/17 [Last Taken 09/22/17] Vit C/Dl-E AC/Lut/Copper/Znox [Preservision Softgel] 1 cap PO BID 08/16/17 [ Last Taken 09/22/17] Timolol 0.5% [TIMOPTIC 0.5% (*)] 1 drops EACHEYE DAILY 08/28/17 [Last Taken ] Cholecalciferol Vit D3 [Vitamin D3 (*)] 2,000 units PO DAILY 08/30/17 [Last Taken 09/22/17] [place] Carbonate ER [Eskalith Cr 450 mg (*)] 450 mg PO DAILY 08/30/17 [Last Taken 09/22/17] Warfarin Sodium [Coumadin 5MG (*)] 7.5 mg PO WE@1600 08/30/17 [Last Taken ] Acetaminophen [Tylenol 325mg (*)] 325 mg PO Q6 PRN 09/23/17 [Last Taken Unknown] Calcium Carbonate/Vitamin D3 [Calcium 600-Vit D3 800 Caplet] 1 each PO DAILY [Last Taken 09/22/17] Melatonin [Melatonin 3 MG (*)] 9 mg PO HS 09/23/17 [Last Taken 09/22/17] Lidocaine 4%/Menthol 1% [Icy Hot Lidocaine/Menthol 4%/1% Patch (*)] 1 patch TD DAILY patch 09/26/17 [Last Taken Unknown] Polyethylene Glycol 3350 [Miralax 17 gm (*)] 17 gm PO DAILY #30 pkt 09/26/17 [ Last Taken Unknown] Sennosides/Docusate Sodium [Senokot-S] 1 - 2 tab PO HS #30 tab 09/26/17 [Last Taken Unknown] Discharge Medications: Refer to the Discharge Home Medication list for PRN reason. - Orders Services needed: Home Care, Registered Nurse, Physical Therapy, Occupational Therapy Home Care Face to Face: I certify that this patient was under my care and that I had the required [id number] encounter meeting the encounter requirements on the discharge day. My findings support the fact that the patient is homebound as defined in Home Care Face to Face Continued: CMS Chapter 7 Medicare Benefits Manual 30.1.1 , The condition of the patient is such that there exists a normal inability to leave home and consequently, leaving home would require a considerable and taxing effort. Diet Recommendation: no restrictions on diet Diet Texture: Regular Texture Diet Additional Instructions: 1. Take 1-2 tabs Senna nightly, if not effective then take 17gram of Miralax 1. Follow up with Dr. Melendez 09/29 2. Follow up with Opthalmologist 09/29 - Follow Up Care Current Providers and Referrals: Mounika Melendez MD [Primary Care Provider] - As per Instructions
--- NOTE | 2017-09-26 12:08 | ASMTCMCOM ---
CM Note CM Note Notes: Pt ready for DC today. [facility] alerted. Family notified. Date Signed: 09/26/2017 12:07 PM Electronically Signed By:Ramonita Milton LCSW
--- NOTE | 2017-09-26 13:44 | GDS ---
[f rep st] DISCHARGE SUMMARY DISCHARGE DIAGNOSES: 1. Acute toxic encephalopathy. 2. Chronic back pain. 3. Acute kidney injury. 4. [place] toxicity. 5. Bipolar disorder. 6. Hyperphosphatemia. 7. Heart murmur. 8. Shortness of breath. 9. Recent L12 fracture, status post kyphoplasty. 10. Osteoporosis. 11. Remote deep venous thrombosis. 12. Hypercalcemia. 13. Leukocytosis. HPI: A 77-year-old female, history of bipolar disorder, remote DVT, chronic back pain with recent compression fracture and kyphoplasty, brought in for confusion. The patient was discharged to [facility] for rehabilitation. Was at home for the past week. She saw her PCP, and her oxycodone was increased to 10 mg q. hour scheduled, along with p.r.n. Tylenol. He brought her here to the hospital, because she has been sleepy and not herself. She had decreased oral intake and also constipated for 4 days. She complains of chronic shortness of breath but no chest pain, no swelling in her legs, no PND, pillow orthopnea. HOSPITAL COURSE BY PROBLEM: 1. Acute toxic encephalopathy: Multifactorial with oxycodone and lithium toxicity. She is near her baseline per today, though this is per her . Suspect opioids have been contributing. 2. Chronic back pain: recent compression fraction with kyphoplasty with much improvement in her symptoms. FU at [facility] for nerve ablations. Stop oxycodone. Use Tylenol and low-dose tramadol at bedtime 3. AZAEL: Decrease oral intake with encephalopathy. Creatinine now normal after fluids. 4. [place] toxicity: resolved with hydration. 5. Bipolar disorder. Restart her lithium. Discuss other tx options with Dr. Melendez 6. Hypercalcemia: now normal. 7. Heart murmur: No evidence of volume overload. 8. Shortness of breath: suspect underlying COPD; significant tobacco history. Euvolemic here. Recommend outpatient pulmonary function tests. 9. Leukocytosis: from dehydration. Cultures remain negative. Normal procalcitonin. 10. History of remote DVT: >10yrs ago; coumadin may be warranted. D/w PCP. 11. Disposition: Patient is stable for discharge home with her . PT, OT and home nurse have been arranged through [facility]. NEW MEDICATIONS: Tramadol 25 mg at bedtime p.r.n. pain. FOLLOWUP: 1. Dr. Abdul. 2. Her release manager for macular degeneration. 3. Outpatient pulmonary function tests. PHYSICAL EXAMINATION: VITAL SIGNS: Today, temperature 36.6. Blood pressure is 137/73. Heart rate in the 80s, respirations 18, 97% on room air. GENERAL: She is walking with her walker, in no acute distress. HEENT: PERRLA. Moist mucous membranes. CV: Regular rate and rhythm. LUNGS: Clear. ABDOMEN: Soft , nontender, nondistended. Positive bowel sounds. : No Marc. MUSCULOSKELETAL: Slow gait but walking with her walker. NEURO: 2-12 intact. No focal deficits. PSYCH: She is alert to place, why she is in the hospital. Still has a problem with the year. Time spent on discharge greater than 40 minutes at bedside with patient, counseling on medications, and followup plan. /[id number]/MODL MTDD
[2017-09-26] MEDS: ENOXAPARIN 60 MG/0.6 ML SYR SC SCH (14:30)
--- NOTE | 2017-09-27 11:31 | ASDISCHSUM ---
Discharge Information Plan Status: Medically Cleared to Leave: Discharge Date:09/26/2017 02:56 PM CM D/C Disposition: ADT D/C Disposition:Home, Routine, Self-Care Projected Discharge Date:09/26/2017 11:00 AM Transportation at D/C: Discharge Delay Reason: Follow-Up Date:09/26/2017 11:00 AM Discharge Slot: Final Diagnosis: Placement Information Referral Type:*Home Health Care Services Referral ID:[id number] Provider Name:[facility] Address 1:[address] Address 2: City:[place] Selection Factors: State:[place] Patient Contact Information Contact Name:ROCCO Relationship: Address:[address] Work Phone: City:[place] Alternate Phone: State/Zip Code:[place] [address] Email: Financial Information Financial Class:Medicare Advantage Plans Primary Plan Desc:[facility] [employer] PLANS Primary Plan Number:[id number] Secondary Plan Desc: Secondary Plan Number: Assessment Information [facility] Initial CM Assessment Living Arrangements What is your living Answers: With Spouse arrangement? Who do you live with? Type Of Residence Stairs in Home Answers: Yes Notes: Single level home, 5 Environment steps from [facility] Case Management Evaluation Functional: Able to Answers: No return Home with Prior Level of Function/Care Functional: ADL / IADL Answers: Mobility Issues Performance Deficits Due to: Vision Deficits Psychosocial Needs: Answers: Active Substance Abuse Notes: reported by Behavioral Health Issue Discharge Plan Comments Coordination Status Comments Notes: Pt in FED accompanied by her Anderson. Anderson expressed concern about her level of opiate use following surgery in March 2017 and a procedure earlier this month. He stated that her pain "should be a lot less than it is". He has to manage and hide her pills and he believes she is taking too much. Pt did not verbally respond to this SW and she did not make eye contact. Her eyes were open and she gazed forward during the conversation. She appeared confused and disconnected. She had noticeable, involuntary muscle movements and twitches. Anderson reported that the twitches have increased over the last year but he is not sure when they began. He also reported that the pt. has macular degeneration and does not make eye contact. Pt. utilized [facility] but Anderson indicated that they were not happy with the service. [facility] was coordinating in home PT services but services have not been arranged yet. Anderson is the primary care provider for the pt at this time, they receive no assistance and he indicated that he is exhausted and needs help. [facility] plans TBD case management to follow. Date Signed: 09/23/2017 12:35 PM Electronically Signed By:Heather Sullivan LCSW LACE LACE Length of stay for Answers: Less than 1 day current admission Acuity / Level of Answers: Yes Care: Did the patient have an inpatient admission? Comorbidities - select Answers: Opioid dependence all that apply / Chronic pain # of Emergency department Answers: 1-2 visits in the last 6 months Score: 8 Date Signed: 09/23/2017 12:38 PM Electronically Signed By:Heather Sullivan LCSW [facility] CM Progress Note CM Note CM Note Notes: Pt with hx of bipolar and recent compression fx with kypho admitted for lithium toxicity. Pt had a recent stay at [facility], [facility] a week ago. Currently, OT rec SNF and PT rec HC. CM will continue to follow as pt improves with treatment. Date Signed: 09/24/2017 03:22 PM Electronically Signed By:Ramonita Milton LCSW [facility] CM Progress Note CM Note CM Note Notes: Pt will need HC PT at DC. Pt was using a [facility] service called [facility] after DC from . However, they do not offer RN and pt may need this at DC so wanted to switch to HC. [facility] will provide PT and possibly RN. also asked for help getting pt an appt with her opthamologist for her macular degernation. Pt has an appt with Dr Rodriguez from [facility] at their [place] office at [address] [place] [address] on 09/29 at 3:40. CM to follow. Date Signed: 09/25/2017 02:05 PM Electronically Signed By:Ramonita Milton LCSW [facility] CM Progress Note CM Note CM Note Notes: Pt ready for DC today. [facility] alerted. Family notified. Date Signed: 09/26/2017 12:07 PM Electronically Signed By:Ramonita Milton LCSW Intervention Information
== END 2017-09-26 14:56 | disposition home health service (06) | DRG 682 ==
LOC: F1N 13:19 → OBSVTOIN 09-24 13:21
PROVIDERS: ADMIT Internal Medicine; ATTEND Internal Medicine
DX: N17.9 Acute kidney failure, unspecified (principal); G92 Toxic encephalopathy; F11.20 Opioid dependence, uncomplicated; T43.592A Poisoning by other antipsychotics and neuroleptics, intentional self-harm, initial encounter; E86.0 Dehydration; T40.2X5A Adverse effect of other opioids, initial encounter; G89.29 Other chronic pain; F31.9 Bipolar disorder, unspecified; E83.39 Other disorders of phosphorus metabolism; R01.1 Cardiac murmur, unspecified; M81.0 Age-related osteoporosis without current pathological fracture; E83.52 Hypercalcemia; K59.00 Constipation, unspecified; Z66 Do not resuscitate; Z86.718 Personal history of other venous thrombosis and embolism
CPT/HCPCS: 82435-PO; 82565-PO; 82947-PO; 84132-PO; 84295-PO; 84520-PO; 85014-PO; 92523-GN; 97116-GP; 97162-GP; 97165-GO; 97535-GO; G0378; G8978-GP-CK; G8979-GP-CJ; G8987-GO-CK; G8988-GO-CI; G9168-GN-CK; G9169-GN-CJ; J1650

== ENCOUNTER → 2017-11-09 | Outpatient (CLI) | payer OTHER | LOC: CIMAGING 14:22 | PROVIDERS: ATTEND Internal Medicine | DX: Z12.31 Encounter for screening mammogram for malignant neoplasm of breast (principal) ==

== ENCOUNTER → 2018-04-13 | Outpatient (CLI) | payer OTHER | LOC: CIMAGING 10:19 | PROVIDERS: ATTEND Internal Medicine | DX: S27.321A Contusion of lung, unilateral, initial encounter (principal); I51.7 Cardiomegaly; I25.10 Atherosclerotic heart disease of native coronary artery without angina pectoris; I70.0 Atherosclerosis of aorta; J98.6 Disorders of diaphragm; E01.0 Iodine-deficiency related diffuse (endemic) goiter; Z98.890 Other specified postprocedural states; Z87.891 Personal history of nicotine dependence | CPT/HCPCS: 71250-PO ==

== ENCOUNTER → 2018-05-05 | Outpatient (CLI) | payer OTHER | LOC: EMCIMAGING 13:17 | PROVIDERS: ATTEND Internal Medicine | DX: E04.2 Nontoxic multinodular goiter (principal); J98.4 Other disorders of lung; I31.8 Other specified diseases of pericardium; I51.7 Cardiomegaly | CPT/HCPCS: 71260-PN ==